=== PATIENT | male | born 1985 | race Caucasian/White ===

== ENCOUNTER 2018-06-09 13:15 | Inpatient (IN) | payer BC ==
[2018-06-09] MEDS ORDERED: Aspirin 81 MG Tab.Chew PO ONE (13:21)
[2018-06-09] MEDS: Sodium Chloride 0.9% 10 ML Syringe FLUSH PRN ×2 (13:32→13:41)
--- NOTE | 2018-06-09 14:16 | EDM.PDOC ---
ED HPI GENERAL MEDICAL PROBLEM - General Chief Complaint: Chest Pain Stated Complaint: ABNORMAL EKG READING SENT BY DR ROCA Time Seen by Provider: 06/09/18 13:24 Source of Information: Reports: Patient History Limitations: Reports: No Limitations - History of Present Illness INITIAL COMMENTS - FREE TEXT/NARRATIVE: 33 y/o previously healthy male presents from clinic for abnormal EKG. States he' s been feeling short of breath for about a week. SOB is worse with exertion. He' s also had mild pain in his chest which he states is not really pain but more of a discomfort. No fever. Doesn't feel ill. No provoking factor. No lower extremity pain or swelling. No hx similar symptoms previously. Was seen at clinic by Dr. Miranda who noted ST elevations on EKG and poor R wave progression so sent the patient here for further care. Treatments ASSURANCE SENIOR MANAGER INSURANCE: Reports: Other (see below) Other Treatments ASSURANCE SENIOR MANAGER INSURANCE: EKG Chest Pain Score (Numeric/FACES): 6 - Related Data Allergies Allergy/AdvReac Type Severity Reaction Status Date / Time No Known Allergies Allergy Verified 06/09/18 13:23 Home Meds: Home Meds . [No Known Home Meds] 06/09/18 [History] Past Medical History Genitourinary History: Reports: Other (See Below) Other Genitourinary History: kidney infection Social & Family History - Tobacco Use Smoking Status *Q: Never Smoker - Caffeine Use Caffeine Use: Reports: Coffee, Energy Drinks - Alcohol Use Days Per Week of Alcohol Use: 2 Number of Drinks Per Day: 8 Total Drinks Per Week: 16 - Recreational Drug Use Recreational Drug Use: No ED ROS GENERAL - Review of Systems Review Of Systems: See Below Constitutional: Denies: Fever HEENT: Reports: No Symptoms Respiratory: Reports: Shortness of Breath Cardiovascular: Reports: Chest Pain Endocrine: Reports: No Symptoms GI/Abdominal: Denies: Abdominal Pain : Reports: No Symptoms Musculoskeletal: Reports: No Symptoms Skin: Reports: No Symptoms Neurological: Reports: No Symptoms Psychiatric: Reports: No Symptoms ED EXAM, GENERAL - Physical Exam Exam: See Below Exam Limited By: No Limitations General Appearance: Alert, WD/WN, No Apparent Distress Eye Exam: Bilateral Eye: Normal Inspection Ears: Normal External Exam Nose: Normal Inspection Throat/Mouth: Normal Inspection, Normal Oropharynx, Normal Voice, No Airway Compromise Head: Atraumatic, Normocephalic Neck: Normal Inspection Respiratory/Chest: No Respiratory Distress, Other (very diminished on the R ) Cardiovascular: Normal Peripheral Pulses, No Edema, Tachycardia GI/Abdominal: Soft, Non-Tender, No Distention. No: Rebound Back Exam: Normal Inspection Extremities: Normal Inspection, Non-Tender, No Pedal Edema Neurological: Alert, Oriented, Normal Cognition, No Motor/Sensory Deficits Psychiatric: Normal Affect, Normal Mood Skin Exam: Warm, Dry, Intact, Normal Color, No Rash Course - Vital Signs Last Recorded V/S: Last Vital Signs Temp 37.6 C 06/09/18 15:16 Pulse 108 H 06/09/18 15:16 Resp 18 06/09/18 15:16 BP 182/116 H 06/09/18 15:16 Pulse Ox 96 06/09/18 15:16 - Orders/Labs/Meds Orders: Active Orders 24 hr Category Date Time Status EKG 12 Lead [EKG Documentation Completion] [RC] STAT Care 06/09/18 13:21 Active Peripheral IV Care [RC] . DIRECTED Care 06/09/18 13:21 Active Peripheral IV Care [RC] . DIRECTED Care 06/09/18 13:21 Active Chest 1V Frontal [CR] Stat Exams 06/09/18 13:21 Taken Sodium Chloride 0.9% [Saline Flush] Med 06/09/18 13:21 Active 10 ml FLUSH ASDIRECTED PRN Peripheral IV Insertion Adult [OM.PC] Routine Oth 06/09/18 13:21 Ordered Medication Orders Sodium Chloride (Saline Flush) 10 ml FLUSH ASDIRECTED PRN PRN Reason: Keep Vein Open Last Admin: 06/09/18 13:41 Dose: 10 ml Admin: 06/09/18 13:32 Dose: 10 ml Labs: Laboratory Tests 06/09/18 06/09/18 Range/Units 13:39 13:39 WBC 10.98 H (4.23-9.07) K/mm3 RBC 5.91 (4.63-6.08) M/mm3 Hgb 17.4 (13.7-17.5) gm/L Hct 51.7 H (40.1-51.0) % MCV 87.5 (79.0-92.2) fl MCH 29.4 (25.7-32.2) pg MCHC 33.7 (32.2-35.5) g/dl RDW Std Deviation 44.1 H (35.1-43.9) fL Plt Count 338 H (163-337) K/mm3 MPV 10.2 (9.4-12.3) fl Neut % (Auto) 59.1 (34.0-67.9) % Lymph % (Auto) 23.5 (21.8-53.1) % [place] % (Auto) 13.8 H (5.3-12.2) % Eos % (Auto) 2.5 (0.8-7.0) Baso % (Auto) 0.9 (0.1-1.2) % Neut # (Auto) 6.49 H (1.78-5.38) K/mm3 Lymph # (Auto) 2.58 (1.32-3.57) K/mm3 [place] # (Auto) 1.52 H (0.30-0.82) K/mm3 Eos # (Auto) 0.27 (0.04-0.54) K/mm3 Baso # (Auto) 0.10 H (0.01-0.08) K/mm3 Manual Slide Review Normal smear Sodium 138 (136-145) mEq/L Potassium 3.6 (3.5-5.1) mEq/L Chloride 101 (98-107) mEq/L Carbon Dioxide 28 (21-32) mEq/L Anion Gap 12.6 (5-15) BUN 12 (7-18) mg/dL Creatinine 1.2 (0.7-1.3) mg/dL Est Cr Clr Drug Dosing 85.50 mL/min Estimated GFR (MDRD) > 60 (>60) mL/min BUN/Creatinine Ratio 10.0 L (14-18) Glucose 83 (74-106) mg/dL Calcium 9.7 (8.5-10.1) mg/dL Magnesium 2.2 (1.8-2.4) mg/dl Total Bilirubin 0.8 (0.2-1.0) mg/dL AST 39 H (15-37) U/L ALT 52 (16-63) U/L Alkaline Phosphatase 98 (46-116) U/L Troponin I < 0.017 (0.00-0.056) ng/mL Total Protein 8.6 H (6.4-8.2) g/dl Albumin 4.6 (3.4-5.0) g/dl Globulin 4.0 gm/dL Albumin/Globulin Ratio 1.2 (1-2) Meds: Medications Generic Name Dose Route Start Last Admin Trade Name Guanako PRN Reason Stop Dose Admin Sodium Chloride 10 ml 06/09/18 13:21 06/09/18 13:41 Saline Flush FLUSH 10 ml ASDIRECTED PRN Administration Keep Vein Open Discontinued Medications Generic Name Dose Route Start Last Admin Trade Name Guanako PRN Reason Stop Dose Admin Aspirin 324 mg 06/09/18 13:21 06/09/18 13:32 Aspirin PO 06/09/18 13:22 324 mg ONETIME ONE Administration Ketamine HCl Confirm 06/09/18 15:27 Ketalar Administered 06/09/18 15:28 Dose 500 mg .ROUTE .STK-MED ONE Lidocaine HCl Confirm 06/09/18 14:41 Xylocaine 1% Administered 06/09/18 14:42 Dose 10 ml .ROUTE .STK-MED ONE Midazolam HCl Confirm 06/09/18 15:27 Versed 1 Mg/Ml Administered 06/09/18 15:28 Dose 2 mg .ROUTE .STK-MED ONE Propofol Confirm 06/09/18 15:27 Diprivan 20 Ml Administered 06/09/18 15:28 Dose 200 mg .ROUTE .STK-MED ONE - Re-Assessments/Exams Free Text/Narrative Re-Assessment/Exam: 06/09/18 14:29 EKG shows NSR wtih possible R atrial enlargement and borderline R axis deviation. Based on EKG from clinic which showed ST elevation approx 1-2 mm V2/ V3 and inferior T wave flattening I did order ASA 324mg. PE was also initially on the differential. However, CXR showed a very large R pneumothorax. Patient will need a chest tube. Labs unremarkable. 06/09/18 16:[address] Grace, surgeon content director, who placed a chest tube with procedural sedation by anesthesia. He will need to be admitted for monitoring. Departure - Departure Time of Disposition: 16:18 Disposition: Admitted As Inpatient 67 Clinical Impression: Spontaneous pneumothorax - Discharge Information Referrals: PCP,None [Primary Care Provider] - Forms: ED Department Discharge - My Orders Last 24 Hours: My Active Orders 06/09/18 13:21 EKG 12 Lead [EKG Documentation Completion] [RC] STAT Peripheral IV Care [RC] . DIRECTED Peripheral IV Care [RC] . DIRECTED Chest 1V Frontal [CR] Stat Sodium Chloride 0.9% [Saline Flush] 10 ml FLUSH ASDIRECTED PRN Peripheral IV Insertion Adult [OM.PC] Routine - Assessment/Plan Last 24 Hours: My Active Orders 06/09/18 13:21 EKG 12 Lead [EKG Documentation Completion] [RC] STAT Peripheral IV Care [RC] . DIRECTED Peripheral IV Care [RC] . DIRECTED Chest 1V Frontal [CR] Stat Sodium Chloride 0.9% [Saline Flush] 10 ml FLUSH ASDIRECTED PRN Peripheral IV Insertion Adult [OM.PC] Routine
[2018-06-09] MEDS ORDERED: Lidocaine 1% 10 ML MDV ONE (14:41)
--- NOTE | 2018-06-09 15:16 | PCM.PREANE ---
Preanesthetic Assessment - Anesthesia/Transfusion/Family Hx Anesthesia History: Prior Anesthesia Without Reaction Family History of Anesthesia Reaction: No Transfusion History: No Prior Transfusion(s) - Review of Systems General: Fatigue, Malaise Pulmonary: Shortness of Breath, Pleuritic Chest Pain, Cough Cardiovascular: No Symptoms Gastrointestinal: No Symptoms Neurological: No Symptoms Other: Reports: None - Physical Assessment NPO Status Date: 06/09/18 NPO Status Time: 08:00 Pulse: 108 O2 Sat by Pulse Oximetry: 96 Respiratory Rate: 18 Blood Pressure: 182/116 Temperature: 37.6 C Vital Signs: Last Vital Signs Temp 36.7 C 06/09/18 13:23 Pulse 113 H 06/09/18 13:23 Resp 20 06/09/18 13:23 BP 177/135 H 06/09/18 13:23 Pulse Ox 95 06/09/18 13:23 Height: 1.73 m Weight: 75.75 kg ASA Class: 2E Mental Status: Alert & Oriented x3 Airway Class: Mallampati = 1 Dentition: Reports: Normal Dentition Thyro-Mental Finger Breadths: 3 Mouth Opening Finger Breadths: 3 ROM/Head Extension: Full Lungs: Clear to Auscultation, Decreased Breath Sounds (right) Cardiovascular: Regular Rhythm, Tachycardia - Lab Values: Laboratory Last Values WBC 10.98 K/mm3 (4.23-9.07) H 06/09/18 13:39 RBC 5.91 M/mm3 (4.63-6.08) 06/09/18 13:39 Hgb 17.4 gm/L (13.7-17.5) 06/09/18 13:39 Hct 51.7 % (40.1-51.0) H 06/09/18 13:39 MCV 87.5 fl (79.0-92.2) 06/09/18 13:39 MCH 29.4 pg (25.7-32.2) 06/09/18 13:39 MCHC 33.7 g/dl (32.2-35.5) 06/09/18 13:39 RDW Std Deviation 44.1 fL (35.1-43.9) H 06/09/18 13:39 Plt Count 338 K/mm3 (163-337) H 06/09/18 13:39 MPV 10.2 fl (9.4-12.3) 06/09/18 13:39 Neut % (Auto) 59.1 % (34.0-67.9) 06/09/18 13:39 Lymph % (Auto) 23.5 % (21.8-53.1) 06/09/18 13:39 [place] % (Auto) 13.8 % (5.3-12.2) H 06/09/18 13:39 Eos % (Auto) 2.5 (0.8-7.0) 06/09/18 13:39 Baso % (Auto) 0.9 % (0.1-1.2) 06/09/18 13:39 Neut # (Auto) 6.49 K/mm3 (1.78-5.38) H 06/09/18 13:39 Lymph # (Auto) 2.58 K/mm3 (1.32-3.57) 06/09/18 13:39 [place] # (Auto) 1.52 K/mm3 (0.30-0.82) H 06/09/18 13:39 Eos # (Auto) 0.27 K/mm3 (0.04-0.54) 06/09/18 13:39 Baso # (Auto) 0.10 K/mm3 (0.01-0.08) H 06/09/18 13:39 Manual Slide Review Normal smear 06/09/18 13:39 Sodium 138 mEq/L (136-145) 06/09/18 13:39 Potassium 3.6 mEq/L (3.5-5.1) 06/09/18 13:39 Chloride 101 mEq/L (98-107) 06/09/18 13:39 Carbon Dioxide 28 mEq/L (21-32) 06/09/18 13:39 Anion Gap 12.6 (5-15) 06/09/18 13:39 BUN 12 mg/dL (7-18) 06/09/18 13:39 Creatinine 1.2 mg/dL (0.7-1.3) 06/09/18 13:39 Est Cr Clr Drug Dosing 85.50 mL/min 06/09/18 13:39 Estimated GFR (MDRD) > 60 mL/min (>60) 06/09/18 13:39 BUN/Creatinine Ratio 10.0 (14-18) L 06/09/18 13:39 Glucose 83 mg/dL (74-106) 06/09/18 13:39 Calcium 9.7 mg/dL (8.5-10.1) 06/09/18 13:39 Magnesium 2.2 mg/dl (1.8-2.4) 06/09/18 13:39 Total Bilirubin 0.8 mg/dL (0.2-1.0) 06/09/18 13:39 AST 39 U/L (15-37) H 06/09/18 13:39 ALT 52 U/L (16-63) 06/09/18 13:39 Alkaline Phosphatase 98 U/L (46-116) 06/09/18 13:39 Troponin I < 0.017 ng/mL (0.00-0.056) 06/09/18 13:39 Total Protein 8.6 g/dl (6.4-8.2) H 06/09/18 13:39 Albumin 4.6 g/dl (3.4-5.0) 06/09/18 13:39 Globulin 4.0 gm/dL 06/09/18 13:39 Albumin/Globulin Ratio 1.2 (1-2) 06/09/18 13:39 - Allergies Allergies/Adverse Reactions: Allergies Allergy/AdvReac Type Severity Reaction Status Date / Time No Known Allergies Allergy Verified 06/09/18 13:23 - Blood Blood Available: No Product(s) Available: None - Anesthesia Plan Pre-Op Medication Ordered: None - Acknowledgements Anesthesia Type Planned: MAC Pt an Appropriate Candidate for the Planned Anesthesia: Yes Alternatives and Risks of Anesthesia Discussed w Pt/Guardian: Yes Pt/Guardian Understands and Agrees with Anesthesia Plan: Yes PreAnesthesia Questionnaire Genitourinary History: Reports: Other (See Below) Other Genitourinary History: kidney infection - SUBSTANCE USE Smoking Status *Q: Never Smoker Days Per Week of Alcohol Use: 2 Number of Drinks Per Day: 8 Total Drinks Per Week: 16 Recreational Drug Use History: No - HOME MEDS Home Medications: Home Meds . [No Known Home Meds] 06/09/18 [History] - CURRENT (IN HOUSE) MEDS Current Meds: Current Medications Sodium Chloride (Saline Flush) 10 ml FLUSH ASDIRECTED PRN PRN Reason: Keep Vein Open Last Admin: 06/09/18 13:41 Dose: 10 ml Discontinued Medications Aspirin (Aspirin) 324 mg PO ONETIME ONE Stop: 06/09/18 13:22 Last Admin: 06/09/18 13:32 Dose: 324 mg Lidocaine HCl (Xylocaine 1%) Confirm Administered Dose 10 ml .ROUTE .STK-MED ONE Stop: 06/09/18 14:42
[2018-06-09] MEDS ORDERED: Midazolam 1 MG/ML 2 ML SDV ONE (15:27)
[2018-06-09] MEDS ORDERED: Ketamine 500 mg/10 ML MDV ONE (15:27)
[2018-06-09] MEDS ORDERED: Propofol 200 MG/20 ML SDV ONE (15:27)
[2018-06-09] MEDS ORDERED: Lidocaine 1% 10 ML MDV INJECT ONE (16:20)
[2018-06-09] MEDS ORDERED: Lactated Ringers 1,000 ML IV SCH (16:45)
[2018-06-09] MEDS ORDERED: Morphine 2 MG/ML Syringe IVPUSH ONE (16:54)
[2018-06-09] MEDS ORDERED: Morphine 2 MG/ML Syringe IVPUSH PRN (17:19)
[2018-06-09] MEDS ORDERED: ceFAZolin 1 GM Vial IM SCH (18:00)
--- NOTE | 2018-06-09 18:04 | PCM.CONSN ---
- General Info Date of Service: 06/09/18 Subjective Update: 33 year old male with a history of SOB/chest discomfort for at least a week presents to the ED. He was seen at the clinic and found to have an abnormal ECG. Reportedly there was ST elevation and poor R wave progression. The patient had a repeat ECG which was less concerning when compared to the intial 12 lead performed in the clinic. A CXR showed a right sided pneumothorax. general surgery was called and a chest tube was placed. The hospitalist service has been asked to manage his hypertension. There is a history of up to 16 drinks of alcohol reported by the patient. Therefore CIWA protocol will also be requested by the hospitalist service. A ETOH/UDS will be ordered as well. Functional Status: Reports: Pain Controlled - Review of Systems General: Reports: No Symptoms HEENT: Reports: No Symptoms Pulmonary: Reports: No Symptoms Cardiovascular: Reports: Chest Pain Gastrointestinal: Reports: No Symptoms Genitourinary: Reports: No Symptoms Musculoskeletal: Reports: No Symptoms Skin: Reports: No Symptoms Neurological: Reports: No Symptoms Psychiatric: Reports: No Symptoms - Patient Data Vitals - Most Recent: Last Vital Signs Temp 37.6 C 06/09/18 15:16 Pulse 108 H 06/09/18 15:16 Resp 18 06/09/18 15:16 BP 182/116 H 06/09/18 15:16 Pulse Ox 96 06/09/18 15:16 Weight - Most Recent: 75.75 kg Lab Results Last 24 Hours: Laboratory Results - last 24 hr 06/09/18 06/09/18 Range/Units 13:39 13:39 WBC 10.98 H (4.23-9.07) K/mm3 RBC 5.91 (4.63-6.08) M/mm3 Hgb 17.4 (13.7-17.5) gm/L Hct 51.7 H (40.1-51.0) % MCV 87.5 (79.0-92.2) fl MCH 29.4 (25.7-32.2) pg MCHC 33.7 (32.2-35.5) g/dl RDW Std Deviation 44.1 H (35.1-43.9) fL Plt Count 338 H (163-337) K/mm3 MPV 10.2 (9.4-12.3) fl Neut % (Auto) 59.1 (34.0-67.9) % Lymph % (Auto) 23.5 (21.8-53.1) % [place] % (Auto) 13.8 H (5.3-12.2) % Eos % (Auto) 2.5 (0.8-7.0) Baso % (Auto) 0.9 (0.1-1.2) % Neut # (Auto) 6.49 H (1.78-5.38) K/mm3 Lymph # (Auto) 2.58 (1.32-3.57) K/mm3 [place] # (Auto) 1.52 H (0.30-0.82) K/mm3 Eos # (Auto) 0.27 (0.04-0.54) K/mm3 Baso # (Auto) 0.10 H (0.01-0.08) K/mm3 Manual Slide Review Normal smear Sodium 138 (136-145) mEq/L Potassium 3.6 (3.5-5.1) mEq/L Chloride 101 (98-107) mEq/L Carbon Dioxide 28 (21-32) mEq/L Anion Gap 12.6 (5-15) BUN 12 (7-18) mg/dL Creatinine 1.2 (0.7-1.3) mg/dL Est Cr Clr Drug Dosing 85.50 mL/min Estimated GFR (MDRD) > 60 (>60) mL/min BUN/Creatinine Ratio 10.0 L (14-18) Glucose 83 (74-106) mg/dL Calcium 9.7 (8.5-10.1) mg/dL Magnesium 2.2 (1.8-2.4) mg/dl Total Bilirubin 0.8 (0.2-1.0) mg/dL AST 39 H (15-37) U/L ALT 52 (16-63) U/L Alkaline Phosphatase 98 (46-116) U/L Troponin I < 0.017 (0.00-0.056) ng/mL Total Protein 8.6 H (6.4-8.2) g/dl Albumin 4.6 (3.4-5.0) g/dl Globulin 4.0 gm/dL Albumin/Globulin Ratio 1.2 (1-2) Med Orders - Current: Current Medications Cefazolin Sodium (Ancef) 1 gm IM Q8H [facility] Lactated Ringer's (Ringers, Lactated) 1,000 mls @ 50 mls/hr IV ASDIRECTED [facility] Last Admin: 06/09/18 16:35 Dose: 50 mls/hr Potassium Chloride/Dextrose/Sod Cl (D5 1/2 Ns W/ 20 Meq/L Kcl) 1,000 mls @ 100 mls/hr IV ASDIRECTED [facility] Morphine Sulfate (Morphine) 2 mg IVPUSH Q1H PRN PRN Reason: Pain (moderate 4-6) Sodium Chloride (Saline Flush) 10 ml FLUSH ASDIRECTED PRN PRN Reason: Keep Vein Open Last Admin: 06/09/18 13:41 Dose: 10 ml Discontinued Medications Aspirin (Aspirin) 324 mg PO ONETIME ONE Stop: 06/09/18 13:22 Last Admin: 06/09/18 13:32 Dose: 324 mg Ketamine HCl (Ketalar) Confirm Administered Dose 500 mg .ROUTE .STK-MED ONE Stop: 06/09/18 15:28 Lidocaine HCl (Xylocaine 1%) Confirm Administered Dose 10 ml .ROUTE .STK-MED ONE Stop: 06/09/18 14:42 Last Admin: 06/09/18 16:23 Dose: Not Given Lidocaine HCl (Xylocaine 1%) 10 ml INJECT ONETIME ONE Stop: 06/09/18 16:21 Last Admin: 06/09/18 16:23 Dose: 10 ml Midazolam HCl (Versed 1 Mg/Ml) Confirm Administered Dose 2 mg .ROUTE .STK-MED ONE Stop: 06/09/18 15:28 Morphine Sulfate (Morphine) 2 mg IVPUSH ONETIME ONE Stop: 06/09/18 16:55 Last Admin: 06/09/18 17:00 Dose: 2 mg Propofol (Diprivan 20 Ml) Confirm Administered Dose 200 mg .ROUTE .STK-MED ONE Stop: 06/09/18 15:28 - Exam General: Alert, Oriented, Cooperative, No Acute Distress HEENT: Pupils Equal, Pupils Reactive, EOMI Neck: Trachea Midline, No JVD Lungs: Normal Respiratory Effort Cardiovascular: Regular Rate, Tachycardia GI/Abdominal Exam: Normal Bowel Sounds, Soft, Non-Tender, No Organomegaly, No Distention (Male) Exam: Deferred Back Exam: Normal Inspection Extremities: Normal Inspection, Non-Tender, Normal Capillary Refill Skin: Warm Neurological: No New Focal Deficit, Normal Speech Psy/Mental Status: Alert, Normal Affect, Normal Mood Consult PN Assessment/Plan POD#: 0 (1) Elevated blood-pressure reading without diagnosis of hypertension SNOMED Code(s): 668388825 Code(s): R03.0 - ELEVATED BLOOD-PRESSURE READING, W/O DIAGNOSIS OF HTN Current Visit: Yes (2) Spontaneous pneumothorax SNOMED Code(s): 23750396 Code(s): J93.83 - OTHER PNEUMOTHORAX Current Visit: No Problem List Initiated/Reviewed/Updated: Yes Plan: Impression: Spontaneous PTX, right sided Elevated BP without history of hypertension History of ethanol, 16 drinks per week; query withdrawal Plan: ZAHRA UDA Alpha aimee Beta aimee Vasodilator CIWA protocol as needed. DVT/GI prophylaxis
[2018-06-09] MEDS ORDERED: hydrALAZINE 20 MG/ML SDV IVPUSH PRN ×2 (18:08→21:13)
[2018-06-09] MEDS ORDERED: Morphine 4 MG/ML Syringe IVPUSH ONE (18:20)
[2018-06-09] MEDS: D5 1/2 NS w/ 20 mEq/L KCl 1,000 ML IV SCH (18:34)
[2018-06-09] MEDS ORDERED: cloNIDine 0.1 MG Tab PO ONE (21:00)
[2018-06-09] MEDS ORDERED: Ketorolac 60 MG/2 ML SDV IM ONE (21:09)
[2018-06-10] MEDS: Ketorolac 30 MG/ML SDV IVPUSH SCH ×5 (02:58→20:43)
[2018-06-10] MEDS: HYDROmorphone 1 MG/ML Syringe IVPUSH PRN ×3 (03:57→18:43)
[2018-06-10] MEDS: D5 1/2 NS w/ 20 mEq/L KCl 1,000 ML IV SCH ×2 (06:19→16:50)
[2018-06-10] MEDS: Acetaminophen/HYDROcodone 325-5 MG Tab PO PRN ×2 (07:58→16:50)
--- NOTE | 2018-06-10 09:49 | PCM.CONSN ---
- General Info Date of Service: 06/10/18 Functional Status: Reports: Tolerating Diet, Ambulating - Review of Systems General: Reports: No Symptoms HEENT: Reports: No Symptoms Pulmonary: Reports: No Symptoms Cardiovascular: Reports: Chest Pain Gastrointestinal: Reports: No Symptoms Genitourinary: Reports: No Symptoms Musculoskeletal: Reports: No Symptoms Skin: Reports: No Symptoms Neurological: Reports: No Symptoms Psychiatric: Reports: No Symptoms - Patient Data Vitals - Most Recent: Last Vital Signs Temp 36.9 C 06/10/18 07:56 Pulse 86 06/10/18 07:56 Resp 16 06/10/18 07:56 BP 165/94 H 06/10/18 07:56 Pulse Ox 94 L 06/10/18 07:56 Weight - Most Recent: 74.253 kg I&O - Last 24 Hours: Intake & Output 06/09/18 06/10/18 06/10/18 22:59 06:59 14:59 Intake Total 25 1300 Balance 25 1300 Lab Results Last 24 Hours: Laboratory Results - last 24 hr 06/09/18 06/09/18 06/09/18 Range/Units 13:39 13:39 13:39 WBC 10.98 H (4.23-9.07) K/mm3 RBC 5.91 (4.63-6.08) M/mm3 Hgb 17.4 (13.7-17.5) gm/L Hct 51.7 H (40.1-51.0) % MCV 87.5 (79.0-92.2) fl MCH 29.4 (25.7-32.2) pg MCHC 33.7 (32.2-35.5) g/dl RDW Std Deviation 44.1 H (35.1-43.9) fL Plt Count 338 H (163-337) K/mm3 MPV 10.2 (9.4-12.3) fl Neut % (Auto) 59.1 (34.0-67.9) % Lymph % (Auto) 23.5 (21.8-53.1) % Cannon % (Auto) 13.8 H (5.3-12.2) % Eos % (Auto) 2.5 (0.8-7.0) Baso % (Auto) 0.9 (0.1-1.2) % Neut # (Auto) 6.49 H (1.78-5.38) K/mm3 Lymph # (Auto) 2.58 (1.32-3.57) K/mm3 Cannon # (Auto) 1.52 H (0.30-0.82) K/mm3 Eos # (Auto) 0.27 (0.04-0.54) K/mm3 Baso # (Auto) 0.10 H (0.01-0.08) K/mm3 Manual Slide Review Normal smear Sodium 138 (136-145) mEq/L Potassium 3.6 (3.5-5.1) mEq/L Chloride 101 (98-107) mEq/L Carbon Dioxide 28 (21-32) mEq/L Anion Gap 12.6 (5-15) BUN 12 (7-18) mg/dL Creatinine 1.2 (0.7-1.3) mg/dL Est Cr Clr Drug Dosing 85.50 mL/min Estimated GFR (MDRD) > 60 (>60) mL/min BUN/Creatinine Ratio 10.0 L (14-18) Glucose 83 (74-106) mg/dL Calcium 9.7 (8.5-10.1) mg/dL Magnesium 2.2 (1.8-2.4) mg/dl Total Bilirubin 0.8 (0.2-1.0) mg/dL AST 39 H (15-37) U/L ALT 52 (16-63) U/L Alkaline Phosphatase 98 (46-116) U/L Troponin I < 0.017 (0.00-0.056) ng/mL Total Protein 8.6 H (6.4-8.2) g/dl Albumin 4.6 (3.4-5.0) g/dl Globulin 4.0 gm/dL Albumin/Globulin Ratio 1.2 (1-2) Urine Opiates Screen (NEGATIVE) Ur Buprenorphine Scrn (NEGATIVE) Ur Oxycodone Screen (NEGATIVE) Urine Methadone Screen (NEGATIVE) Ur Propoxyphene Screen (NEGATIVE) Ur Barbiturates Screen (NEGATIVE) Ur Tricyclics Screen (NEGATIVE) Ur Phencyclidine Scrn (NEGATIVE) Ur Amphetamine Screen (NEGATIVE) U Methamphetamines Scrn (NEGATIVE) U Benzodiazepines Scrn (NEGATIVE) U Cocaine Metab Screen (NEGATIVE) U Marijuana (THC) Screen (NEGATIVE) Ethyl Alcohol 0.00 (0.00) gm% 06/09/18 Range/Units 18:48 WBC (4.23-9.07) K/mm3 RBC (4.63-6.08) M/mm3 Hgb (13.7-17.5) gm/L Hct (40.1-51.0) % MCV (79.0-92.2) fl MCH (25.7-32.2) pg MCHC (32.2-35.5) g/dl RDW Std Deviation (35.1-43.9) fL Plt Count (163-337) K/mm3 MPV (9.4-12.3) fl Neut % (Auto) (34.0-67.9) % Lymph % (Auto) (21.8-53.1) % Cannon % (Auto) (5.3-12.2) % Eos % (Auto) (0.8-7.0) Baso % (Auto) (0.1-1.2) % Neut # (Auto) (1.78-5.38) K/mm3 Lymph # (Auto) (1.32-3.57) K/mm3 Cannon # (Auto) (0.30-0.82) K/mm3 Eos # (Auto) (0.04-0.54) K/mm3 Baso # (Auto) (0.01-0.08) K/mm3 Manual Slide Review Sodium (136-145) mEq/L Potassium (3.5-5.1) mEq/L Chloride (98-107) mEq/L Carbon Dioxide (21-32) mEq/L Anion Gap (5-15) BUN (7-18) mg/dL Creatinine (0.7-1.3) mg/dL Est Cr Clr Drug Dosing mL/min Estimated GFR (MDRD) (>60) mL/min BUN/Creatinine Ratio (14-18) Glucose (74-106) mg/dL Calcium (8.5-10.1) mg/dL Magnesium (1.8-2.4) mg/dl Total Bilirubin (0.2-1.0) mg/dL AST (15-37) U/L ALT (16-63) U/L Alkaline Phosphatase (46-116) U/L Troponin I (0.00-0.056) ng/mL Total Protein (6.4-8.2) g/dl Albumin (3.4-5.0) g/dl Globulin gm/dL Albumin/Globulin Ratio (1-2) Urine Opiates Screen Negative (NEGATIVE) Ur Buprenorphine Scrn Negative (NEGATIVE) Ur Oxycodone Screen Negative (NEGATIVE) Urine Methadone Screen Negative (NEGATIVE) Ur Propoxyphene Screen Negative (NEGATIVE) Ur Barbiturates Screen Negative (NEGATIVE) Ur Tricyclics Screen Negative (NEGATIVE) Ur Phencyclidine Scrn Negative (NEGATIVE) Ur Amphetamine Screen Negative (NEGATIVE) U Methamphetamines Scrn Negative (NEGATIVE) U Benzodiazepines Scrn Negative (NEGATIVE) U Cocaine Metab Screen Negative (NEGATIVE) U Marijuana (THC) Screen Negative (NEGATIVE) Ethyl Alcohol (0.00) gm% Med Orders - Current: Current Medications Hydrocodone Bitart/Acetaminophen ([place] 325-5 Mg) 1 tab PO Q6H PRN PRN Reason: Pain Last Admin: 06/10/18 07:58 Dose: 1 tab Hydralazine HCl (Apresoline) 20 mg IVPUSH Q4H PRN PRN Reason: Hypertension Hydromorphone HCl (Dilaudid) 1 mg IVPUSH Q2H PRN PRN Reason: Pain Last Admin: 06/10/18 03:57 Dose: 1 mg Potassium Chloride/Dextrose/Sod Cl (D5 1/2 Ns W/ 20 Meq/L Kcl) 1,000 mls @ 100 mls/hr IV ASDIRECTED [facility] Last Admin: 06/10/18 06:19 Dose: 100 mls/hr Cefazolin Sodium/Dextrose (Ancef) 50 mls @ 100 mls/hr IV Q8H [facility] Last Admin: 06/10/18 02:59 Dose: 100 mls/hr Ketorolac Tromethamine (Toradol) 30 mg IVPUSH Q6H [facility] Stop: 06/11/18 21:01 Last Admin: 06/10/18 09:20 Dose: Not Given Metoprolol Tartrate (Lopressor) 5 mg IVPUSH Q4H PRN PRN Reason: Hypertension Morphine Sulfate (Morphine) 2 mg IVPUSH Q1H PRN PRN Reason: Pain (moderate 4-6) Last Admin: 06/09/18 18:30 Dose: 2 mg Sodium Chloride (Saline Flush) 10 ml FLUSH ASDIRECTED PRN PRN Reason: Keep Vein Open Last Admin: 06/09/18 13:41 Dose: 10 ml Temazepam (Restoril) 15 mg PO BEDTIME PRN PRN Reason: Insomnia Terazosin HCl (Hytrin) 2 mg PO BID [facility] Last Admin: 06/10/18 08:26 Dose: 2 mg Discontinued Medications Aspirin (Aspirin) 324 mg PO ONETIME ONE Stop: 06/09/18 13:22 Last Admin: 06/09/18 13:32 Dose: 324 mg Clonidine HCl (Catapres) 0.2 mg PO ONETIME ONE Stop: 06/09/18 21:01 Last Admin: 06/09/18 20:37 Dose: 0.2 mg Hydralazine HCl (Apresoline) 20 mg IVPUSH Q6H PRN PRN Reason: Hypertension Last Admin: 06/09/18 18:32 Dose: 20 mg Lactated Ringer's (Ringers, Lactated) 1,000 mls @ 50 mls/hr IV ASDIRECTED [facility] Last Admin: 06/09/18 16:35 Dose: 50 mls/hr Ketamine HCl (Ketalar) Confirm Administered Dose 500 mg .ROUTE .STK-MED ONE Stop: 06/09/18 15:28 Ketorolac Tromethamine (Toradol) 60 mg IM ONETIME ONE Stop: 06/09/18 21:10 Last Admin: 06/09/18 21:22 Dose: 60 mg Lidocaine HCl (Xylocaine 1%) Confirm Administered Dose 10 ml .ROUTE .STK-MED ONE Stop: 06/09/18 14:42 Last Admin: 06/09/18 16:23 Dose: Not Given Lidocaine HCl (Xylocaine 1%) 10 ml INJECT ONETIME ONE Stop: 06/09/18 16:21 Last Admin: 06/09/18 16:23 Dose: 10 ml Midazolam HCl (Versed 1 Mg/Ml) Confirm Administered Dose 2 mg .ROUTE .STK-MED ONE Stop: 06/09/18 15:28 Morphine Sulfate (Morphine) 2 mg IVPUSH ONETIME ONE Stop: 06/09/18 16:55 Last Admin: 06/09/18 17:00 Dose: 2 mg Morphine Sulfate (Morphine) 4 mg IVPUSH ONETIME ONE Stop: 06/09/18 18:21 Last Admin: 06/09/18 20:19 Dose: 4 mg Propofol (Diprivan 20 Ml) Confirm Administered Dose 200 mg .ROUTE .STK-MED ONE Stop: 06/09/18 15:28 - Exam Quality Assessment: DVT Prophylaxis General: Alert, Oriented, Cooperative, No Acute Distress HEENT: Pupils Equal, Pupils Reactive, EOMI Neck: Trachea Midline, No JVD Lungs: Normal Respiratory Effort, Decreased Breath Sounds Cardiovascular: Regular Rate, Tachycardia GI/Abdominal Exam: Normal Bowel Sounds, Soft, Non-Tender, No Organomegaly, No Distention (Male) Exam: Deferred Back Exam: Normal Inspection Extremities: Normal Inspection, Non-Tender, Normal Capillary Refill Skin: Warm Neurological: No New Focal Deficit, Normal Speech Psy/Mental Status: Alert, Normal Affect, Normal Mood Consult PN Assessment/Plan POD#: 1 (1) Elevated blood-pressure reading without diagnosis of hypertension SNOMED Code(s): 316087441 Code(s): R03.0 - ELEVATED BLOOD-PRESSURE READING, W/O DIAGNOSIS OF HTN Current Visit: Yes (2) Spontaneous pneumothorax SNOMED Code(s): 84096807 Code(s): J93.83 - OTHER PNEUMOTHORAX Current Visit: No Problem List Initiated/Reviewed/Updated: Yes My Orders Last 24 Hours: My Active Orders 06/09/18 18:11 Metoprolol Tartrate [Lopressor] 5 mg IVPUSH Q4H PRN 06/09/18 18:51 CIWAA Assessment [RC] Q4HR 06/09/18 19:58 Temazepam [Restoril] 15 mg PO BEDTIME PRN 06/09/18 21:00 Terazosin [Hytrin] 2 mg PO BID 06/09/18 21:11 Acetaminophen/HYDROcodone [[place] 325-5 MG] 1 tab PO Q6H PRN 06/09/18 21:13 hydrALAZINE [Apresoline] 20 mg IVPUSH Q4H PRN 06/10/18 03:00 Ketorolac [Toradol] 30 mg IVPUSH Q6H Plan: Impression: POD 1, s/p chest tube Spontaneous PTX, right sided Elevated BP without history of hypertension History of ethanol, 16 drinks per week; query withdrawal Plan: ZAHRA UDA Alpha aimee Beta aimee Vasodilator CIWA protocol as needed. DVT/GI prophylaxis
[2018-06-10] MEDS: amLODIPine 10 MG Tab PO SCH (10:31)
--- NOTE | 2018-06-10 17:18 | CR ---
Chest: Frontal view of the chest was obtained. Comparison: No previous study. Large right sided pneumothorax is seen. Left lung is clear. Heart size and mediastinum are normal. Bony structures are unremarkable. Impression: 1. Large right-sided pneumothorax. Diagnostic code #5
--- NOTE | 2018-06-10 17:20 | CR ---
Chest: Portable view of the chest was obtained. Comparison: Prior chest x-ray performed earlier on the same date (12:43 PM). Previous large right-sided pneumothorax has been evacuated with right chest tube in place. Subcutaneous air noted from chest tube placement within the right chest wall. Lungs are clear without acute parenchymal change. Heart size and mediastinum are normal. Bony structures are unremarkable. Impression: 1. Subcutaneous air within the right chest wall with right sided chest tube. 2. Previous large right-sided pneumothorax has been evacuated. Diagnostic code #2
[2018-06-11] MEDS: HYDROmorphone 1 MG/ML Syringe IVPUSH PRN ×5 (00:05→22:13)
[2018-06-11] MEDS: Ketorolac 30 MG/ML SDV IVPUSH SCH ×4 (03:01→21:06)
[2018-06-11] MEDS: D5 1/2 NS w/ 20 mEq/L KCl 1,000 ML IV SCH ×3 (03:02→23:46)
--- NOTE | 2018-06-11 07:25 | PCM.CONSN ---
- General Info Date of Service: 06/11/18 Admission Dx/Problem (Free Text): Pneumothorax Subjective Update: In to see Robinson. He is sitting in bed with chest tube present in right side. He is in good spirits. He reports he has had high blood pressure in the past but has not been to see primary care in some time. He is unsure what his baseline is. He reports occasional pain which is exacerbate by movement. He has been receiving pain medication with generally good response. Blood pressure has improved. He has been mildly tachycardic in the low 100's although this increases during pain. Discussed role pain plays on BP and HR. Discussed likely plan after discharge. He has been receiving daily Norvasc 10mg and BID Hytrin. PRN metoprolol and hydralazine ordered. He has been standing but not ambulating. Reports difficulty sleeping. CIWAs have been 0 QHR. Will look at discontinuing tomorrow. He has been utilizing his IS. Functional Status: Reports: Pain Controlled, Tolerating Diet, Urinating, Incentive Spirometry. Denies: Ambulating (standing ), New Symptoms - Review of Systems General: Denies: Fever, Weakness, Fatigue, Malaise HEENT: Reports: No Symptoms. Denies: Eye Pain, Headaches, Sinus Congestion, Sore Throat, Visual Changes Pulmonary: Reports: No Symptoms. Denies: Shortness of Breath, Cough, Sputum, Wheezing Cardiovascular: Reports: Chest Pain. Denies: Palpitations, Dyspnea on Exertion , Orthopnea, Edema Gastrointestinal: Reports: No Symptoms. Denies: Abdominal Pain, Constipation, Decreased Appetite, Diarrhea, Nausea, Vomiting Genitourinary: Reports: No Symptoms Musculoskeletal: Reports: No Symptoms Skin: Reports: No Symptoms Neurological: Reports: Difficulty Walking (2/2 pain ). Denies: Confusion, Dizziness, Headache, Pre-Existing Deficit, Weakness Psychiatric: Reports: No Symptoms. Denies: Confusion - Patient Data Vitals - Most Recent: Last Vital Signs Temp 98.2 F 06/11/18 03:17 Pulse 113 H 06/11/18 03:17 Resp 16 06/11/18 03:17 BP 141/96 H 06/11/18 03:17 Pulse Ox 92 L 06/11/18 03:17 Weight - Most Recent: 168 lb I&O - Last 24 Hours: Intake & Output 06/10/18 06/11/18 06/11/18 22:59 06:59 14:59 Intake Total 7950 3470 Output Total 570 8579 Balance 1487 -314 Lab Results Last 24 Hours: Laboratory Results - last 24 hr 06/10/18 06/11/18 Range/Units 10:12 05:55 Sodium 135 L 137 (136-145) mEq/L Potassium 3.7 4.3 (3.5-5.1) mEq/L Chloride 100 104 (98-107) mEq/L Carbon Dioxide 24 26 (21-32) mEq/L Anion Gap 14.7 11.3 (5-15) BUN 12 11 (7-18) mg/dL Creatinine 1.3 1.1 (0.7-1.3) mg/dL Est Cr Clr Drug Dosing 78.92 93.27 mL/min Estimated GFR (MDRD) > 60 > 60 (>60) mL/min BUN/Creatinine Ratio 9.2 L 10.0 L (14-18) Glucose 172 H 119 H (74-106) mg/dL Calcium 8.4 L 8.7 (8.5-10.1) mg/dL Med Orders - Current: Current Medications Hydrocodone Bitart/Acetaminophen ([place] 325-5 Mg) 1 tab PO Q6H PRN PRN Reason: Pain Last Admin: 06/10/18 16:50 Dose: 1 tab Amlodipine Besylate (Norvasc) 10 mg PO DAILY [facility] Last Admin: 06/10/18 10:31 Dose: 10 mg Hydralazine HCl (Apresoline) 20 mg IVPUSH Q4H PRN PRN Reason: Hypertension Hydromorphone HCl (Dilaudid) 1 mg IVPUSH Q2H PRN PRN Reason: Pain Last Admin: 06/11/18 00:05 Dose: 1 mg Potassium Chloride/Dextrose/Sod Cl (D5 1/2 Ns W/ 20 Meq/L Kcl) 1,000 mls @ 100 mls/hr IV ASDIRECTED [facility] Last Admin: 06/11/18 03:02 Dose: 100 mls/hr Cefazolin Sodium/Dextrose (Ancef) 50 mls @ 100 mls/hr IV Q8H [facility] Last Admin: 06/11/18 03:06 Dose: 100 mls/hr Ketorolac Tromethamine (Toradol) 30 mg IVPUSH Q6H [facility] Stop: 06/11/18 21:01 Last Admin: 06/11/18 03:01 Dose: 30 mg Metoprolol Tartrate (Lopressor) 5 mg IVPUSH Q4H PRN PRN Reason: Hypertension Morphine Sulfate (Morphine) 2 mg IVPUSH Q1H PRN PRN Reason: Pain (moderate 4-6) Last Admin: 06/09/18 18:30 Dose: 2 mg Sodium Chloride (Saline Flush) 10 ml FLUSH ASDIRECTED PRN PRN Reason: Keep Vein Open Last Admin: 06/09/18 13:41 Dose: 10 ml Temazepam (Restoril) 15 mg PO BEDTIME PRN PRN Reason: Insomnia Terazosin HCl (Hytrin) 2 mg PO BID [facility] Last Admin: 06/10/18 20:42 Dose: 2 mg Discontinued Medications Aspirin (Aspirin) 324 mg PO ONETIME ONE Stop: 06/09/18 13:22 Last Admin: 06/09/18 13:32 Dose: 324 mg Clonidine HCl (Catapres) 0.2 mg PO ONETIME ONE Stop: 06/09/18 21:01 Last Admin: 06/09/18 20:37 Dose: 0.2 mg Hydralazine HCl (Apresoline) 20 mg IVPUSH Q6H PRN PRN Reason: Hypertension Last Admin: 06/09/18 18:32 Dose: 20 mg Lactated Ringer's (Ringers, Lactated) 1,000 mls @ 50 mls/hr IV ASDIRECTED [facility] Last Admin: 06/09/18 16:35 Dose: 50 mls/hr Cefazolin Sodium/Dextrose (Ancef) 50 mls @ 100 mls/hr IV Q8H [facility] Last Admin: 06/10/18 18:44 Dose: 100 mls/hr Ketamine HCl (Ketalar) Confirm Administered Dose 500 mg .ROUTE .STK-MED ONE Stop: 06/09/18 15:28 Ketorolac Tromethamine (Toradol) 60 mg IM ONETIME ONE Stop: 06/09/18 21:10 Last Admin: 06/09/18 21:22 Dose: 60 mg Lidocaine HCl (Xylocaine 1%) Confirm Administered Dose 10 ml .ROUTE .STK-MED ONE Stop: 06/09/18 14:42 Last Admin: 06/09/18 16:23 Dose: Not Given Lidocaine HCl (Xylocaine 1%) 10 ml INJECT ONETIME ONE Stop: 06/09/18 16:21 Last Admin: 06/09/18 16:23 Dose: 10 ml Midazolam HCl (Versed 1 Mg/Ml) Confirm Administered Dose 2 mg .ROUTE .STK-MED ONE Stop: 06/09/18 15:28 Morphine Sulfate (Morphine) 2 mg IVPUSH ONETIME ONE Stop: 06/09/18 16:55 Last Admin: 06/09/18 17:00 Dose: 2 mg Morphine Sulfate (Morphine) 4 mg IVPUSH ONETIME ONE Stop: 06/09/18 18:21 Last Admin: 06/09/18 20:19 Dose: 4 mg Propofol (Diprivan 20 Ml) Confirm Administered Dose 200 mg .ROUTE .STK-MED ONE Stop: 06/09/18 15:28 - Exam Quality Assessment: DVT Prophylaxis General: Alert, Oriented, Cooperative, No Acute Distress HEENT: Pupils Equal, Pupils Reactive, EOMI, Mucous Membr. Moist/[place] Neck: Supple, Trachea Midline Lungs: Normal Respiratory Effort, Decreased Breath Sounds (on right side ). No : Rhonchi, Wheezing Cardiovascular: Regular Rate, Tachycardia GI/Abdominal Exam: Normal Bowel Sounds, Soft, Non-Tender, No Organomegaly, No Mass (Male) Exam: Deferred Back Exam: Normal Inspection, Full Range of Motion Extremities: Normal Inspection, Normal Range of Motion, Non-Tender, No Pedal Edema, Normal Capillary Refill Peripheral Pulses: 3+: Radial (L), Radial (R), Dorsalis Pedis (L), Dorsalis Pedis (R) Skin: Warm, Dry, Intact Neurological: No New Focal Deficit Psy/Mental Status: Alert, Normal Affect, Normal Mood Consult PN Assessment/Plan POD#: 3 (1) Elevated blood-pressure reading without diagnosis of hypertension SNOMED Code(s): 357975709 Code(s): R03.0 - ELEVATED BLOOD-PRESSURE READING, W/O DIAGNOSIS OF HTN Current Visit: Yes (2) Spontaneous pneumothorax SNOMED Code(s): 05081225 Code(s): J93.83 - OTHER PNEUMOTHORAX Current Visit: No Problem List Initiated/Reviewed/Updated: Yes Plan: I/P: Acute: Spontaneous right sided pneumothorax s/p chest tube PO day 3 -Reportedly had chest pain and irregular EKG in [facility] -Was told to come to ED -Large right sided pneumothorax noted on CXR -GS placed chest tube -Utilize IS -Management per primary team Malignant HTN, improved -BP 182/116 in ED -> improved today -Exacerbated by pain -Patient reports elevated BPs prior but has not seen primary care in some time -Started on 10mg norvasc and 2mg PO Hytrin -PRN Hydralazine -Follow-up with PCP at discharge -Monitor History of ethanol, 16 drinks per week; query withdrawal -Started on CIWA protocol Q4H-->Q8H -2 on admission (worse) -0 for last few days -Will discontinue tomorrow if still 0 -ETOH 0.00 on admission -UDS negative Chronic: None Plan: Consult requested by Dr. Grace, general surgeon Other orders as indicated aboe No home meds Daily labs as ordered DVT prophylaxis: Per primary provider -SCDs Code Status: Full Code; Does not have PCP and will need to establish
[2018-06-11] MEDS ORDERED: ceFAZolin 1 GM in Premix Bag 1 BAG IV SCH (08:00)
[2018-06-11] MEDS: amLODIPine 10 MG Tab PO SCH (08:03)
--- NOTE | 2018-06-11 09:20 | CR ---
Chest: Portable view of the chest was obtained. Comparison: Prior chest x-ray of 06/09/18. Stable appearing right-sided chest tube is seen. Subcutaneous air is noted within the right chest wall which is mildly diminished from prior exam. No pneumothorax is seen. Lungs are clear without acute parenchymal change. Heart size and mediastinum are normal. Bony structures are unremarkable. Impression: 1. Stable right-sided chest tube. Diminished subcutaneous air within the right chest wall. 2. No pneumothorax or acute parenchymal change is seen. Diagnostic code #2
[2018-06-11] MEDS: ceFAZolin 1 GM in Premix Bag 1 BAG IV SCH ×2 (10:30→18:12)
--- NOTE | 2018-06-11 11:27 | PCM.PN ---
- General Info Date of Service: 06/11/18 Functional Status: Reports: Pain Controlled - Review of Systems General: Reports: No Symptoms HEENT: Reports: No Symptoms Pulmonary: Denies: Shortness of Breath, Pleuritic Chest Pain, Sputum, Hemoptysis Cardiovascular: Reports: No Symptoms Gastrointestinal: Reports: No Symptoms Genitourinary: Reports: No Symptoms Musculoskeletal: Denies: Back Pain Skin: Reports: No Symptoms Neurological: Reports: No Symptoms Psychiatric: Reports: No Symptoms - Patient Data Vitals - Most Recent: Last Vital Signs Temp 99.6 F 06/11/18 08:00 Pulse 110 H 06/11/18 07:31 Resp 18 06/11/18 07:31 BP 147/99 H 06/11/18 08:03 Pulse Ox 94 L 06/11/18 07:31 Weight - Most Recent: 168 lb I&O - Last 24 Hours: Intake & Output 06/10/18 06/11/18 06/11/18 22:59 06:59 14:59 Intake Total 2202 1664 Output Total 715 1978 Balance 1487 -314 Lab Results Last 24 Hours: Laboratory Results - last 24 hr 06/11/18 Range/Units 05:55 Sodium 137 (136-145) mEq/L Potassium 4.3 (3.5-5.1) mEq/L Chloride 104 (98-107) mEq/L Carbon Dioxide 26 (21-32) mEq/L Anion Gap 11.3 (5-15) BUN 11 (7-18) mg/dL Creatinine 1.1 (0.7-1.3) mg/dL Est Cr Clr Drug Dosing 93.27 mL/min Estimated GFR (MDRD) > 60 (>60) mL/min BUN/Creatinine Ratio 10.0 L (14-18) Glucose 119 H (74-106) mg/dL Calcium 8.7 (8.5-10.1) mg/dL Med Orders - Current: Current Medications Hydrocodone Bitart/Acetaminophen ([place] 325-5 Mg) 1 tab PO Q6H PRN PRN Reason: Pain Last Admin: 06/10/18 16:50 Dose: 1 tab Amlodipine Besylate (Norvasc) 10 mg PO DAILY [facility] Last Admin: 06/11/18 08:03 Dose: 10 mg Hydralazine HCl (Apresoline) 20 mg IVPUSH Q4H PRN PRN Reason: Hypertension Hydromorphone HCl (Dilaudid) 1 mg IVPUSH Q2H PRN PRN Reason: Pain Last Admin: 06/11/18 00:05 Dose: 1 mg Potassium Chloride/Dextrose/Sod Cl (D5 1/2 Ns W/ 20 Meq/L Kcl) 1,000 mls @ 100 mls/hr IV ASDIRECTED [facility] Last Admin: 06/11/18 03:02 Dose: 100 mls/hr Cefazolin Sodium/Dextrose 1 gm (/ Premix) 50 mls @ 100 mls/hr IV Q8H [facility] Last Admin: 06/11/18 10:30 Dose: 100 mls/hr Ketorolac Tromethamine (Toradol) 30 mg IVPUSH Q6H [facility] Stop: 06/11/18 21:01 Last Admin: 06/11/18 08:03 Dose: 30 mg Metoprolol Tartrate (Lopressor) 5 mg IVPUSH Q4H PRN PRN Reason: Hypertension Morphine Sulfate (Morphine) 2 mg IVPUSH Q1H PRN PRN Reason: Pain (moderate 4-6) Last Admin: 06/09/18 18:30 Dose: 2 mg Sodium Chloride (Saline Flush) 10 ml FLUSH ASDIRECTED PRN PRN Reason: Keep Vein Open Last Admin: 06/09/18 13:41 Dose: 10 ml Temazepam (Restoril) 15 mg PO BEDTIME PRN PRN Reason: Insomnia Terazosin HCl (Hytrin) 2 mg PO BID [facility] Last Admin: 06/11/18 08:03 Dose: 2 mg Discontinued Medications Aspirin (Aspirin) 324 mg PO ONETIME ONE Stop: 06/09/18 13:22 Last Admin: 06/09/18 13:32 Dose: 324 mg Clonidine HCl (Catapres) 0.2 mg PO ONETIME ONE Stop: 06/09/18 21:01 Last Admin: 06/09/18 20:37 Dose: 0.2 mg Hydralazine HCl (Apresoline) 20 mg IVPUSH Q6H PRN PRN Reason: Hypertension Last Admin: 06/09/18 18:32 Dose: 20 mg Lactated Ringer's (Ringers, Lactated) 1,000 mls @ 50 mls/hr IV ASDIRECTED [facility] Last Admin: 06/09/18 16:35 Dose: 50 mls/hr Cefazolin Sodium/Dextrose (Ancef) 50 mls @ 100 mls/hr IV Q8H [facility] Last Admin: 06/10/18 18:44 Dose: 100 mls/hr Cefazolin Sodium/Dextrose (Ancef) 50 mls @ 100 mls/hr IV Q8H [facility] Last Admin: 06/11/18 03:06 Dose: 100 mls/hr Cefazolin Sodium/Dextrose 1 gm (/ Premix) 50 mls @ 100 mls/hr IV Q8H [facility] Last Admin: 06/11/18 08:04 Dose: Not Given Ketamine HCl (Ketalar) Confirm Administered Dose 500 mg .ROUTE .STK-MED ONE Stop: 06/09/18 15:28 Ketorolac Tromethamine (Toradol) 60 mg IM ONETIME ONE Stop: 06/09/18 21:10 Last Admin: 06/09/18 21:22 Dose: 60 mg Lidocaine HCl (Xylocaine 1%) Confirm Administered Dose 10 ml .ROUTE .STK-MED ONE Stop: 06/09/18 14:42 Last Admin: 06/09/18 16:23 Dose: Not Given Lidocaine HCl (Xylocaine 1%) 10 ml INJECT ONETIME ONE Stop: 06/09/18 16:21 Last Admin: 06/09/18 16:23 Dose: 10 ml Midazolam HCl (Versed 1 Mg/Ml) Confirm Administered Dose 2 mg .ROUTE .STK-MED ONE Stop: 06/09/18 15:28 Morphine Sulfate (Morphine) 2 mg IVPUSH ONETIME ONE Stop: 06/09/18 16:55 Last Admin: 06/09/18 17:00 Dose: 2 mg Morphine Sulfate (Morphine) 4 mg IVPUSH ONETIME ONE Stop: 06/09/18 18:21 Last Admin: 06/09/18 20:19 Dose: 4 mg Propofol (Diprivan 20 Ml) Confirm Administered Dose 200 mg .ROUTE .STK-MED ONE Stop: 06/09/18 15:28 - Exam General: Alert, Oriented, Cooperative, No Acute Distress HEENT: Pupils Equal Neck: Supple Lungs: Clear to Auscultation Cardiovascular: Regular Rate, Tachycardia GI/Abdominal Exam: Normal Bowel Sounds (Male) Exam: No Hernia Back Exam: Normal Inspection Extremities: Normal Inspection Skin: Warm Wound/Incisions: Dressing Dry and Intact Neurological: No New Focal Deficit Psy/Mental Status: Alert - Problem List Review Problem List Initiated/Reviewed/Updated: Yes - My Orders Last 24 Hours: My Active Orders 06/10/18 12:08 Ambulate [RC] BID 06/11/18 11:00 ceFAZolin [Ancef] 1 gm Premix Bag 1 bag IV Q8H 06/11/18 19:00 Communication Order [] DAILY - Assessment Assessment:: Cest xray -no PNTX Plan : chest tube to water seal this PM.
[2018-06-11] MEDS: Metoprolol Tartrate 5 MG/5 ML SDV IVPUSH PRN (12:01)
[2018-06-11] MEDS: Acetaminophen/HYDROcodone 325-5 MG Tab PO PRN (15:21)
[2018-06-11] MEDS: Temazepam 15 MG Cap PO PRN (21:05)
[2018-06-12] MEDS: HYDROmorphone 1 MG/ML Syringe IVPUSH PRN ×4 (01:23→11:15)
[2018-06-12] MEDS: ceFAZolin 1 GM in Premix Bag 1 BAG IV SCH ×2 (03:50→10:35)
[2018-06-12] MEDS: Acetaminophen/HYDROcodone 325-5 MG Tab PO PRN ×3 (08:26→21:06)
[2018-06-12] MEDS: amLODIPine 10 MG Tab PO SCH (08:29)
[2018-06-12] MEDS: Metoprolol Tartrate 5 MG/5 ML SDV IVPUSH PRN ×2 (09:26→21:06)
[2018-06-12] MEDS: D5 1/2 NS w/ 20 mEq/L KCl 1,000 ML IV SCH (10:33)
--- NOTE | 2018-06-12 12:21 | CR ---
Chest: Portable view of the chest was obtained. Comparison: Prior chest x-ray of 06/11/18. Heart size and mediastinum are normal. Small amount of subcutaneous air remains within the right chest wall. Mild increased density is noted within the right upper lung most likely representing pleural reaction around the chest tube. No pneumothorax is seen. Lungs otherwise are clear. Bony structures are grossly intact. Impression: 1. Right-sided chest tube. Increased density within the upper right lung most likely representing pleural reaction around the chest tube. 2. No pneumothorax is seen. Other incidental findings. Diagnostic code #3
--- NOTE | 2018-06-12 13:10 | PCM.CONSN ---
- General Info Date of Service: 06/12/18 Admission Dx/Problem (Free Text): Pneumothorax Subjective Update: In to see Robinson. He is doing well. His chest tube was removed today and he reports this has really helped his pain. BPs have been stable. He is still mildly tachy. He has no concerns. No nursing concerns. He has had a BM and has been urinating without problems. Functional Status: Reports: Pain Controlled, Tolerating Diet, Ambulating, Urinating, Incentive Spirometry. Denies: New Symptoms - Review of Systems General: Reports: No Symptoms. Denies: Fever, Weakness, Fatigue, Malaise, Chills HEENT: Reports: No Symptoms. Denies: Contact Lenses, Ear Pain, Eye Pain, Headaches, Sore Throat, Visual Changes Pulmonary: Reports: No Symptoms. Denies: Shortness of Breath, Cough, Sputum, Wheezing Cardiovascular: Reports: Chest Pain (s/p right sided chest tube. Pain at suture sight ). Denies: Palpitations, Dyspnea on Exertion, Edema, Lightheadedness Gastrointestinal: Reports: No Symptoms. Denies: Abdominal Pain, Constipation, Decreased Appetite, Diarrhea, Difficulty Swallowing, Nausea, Vomiting Genitourinary: Reports: No Symptoms. Denies: Dysuria, Frequency, Burning, Pain , Urgency Musculoskeletal: Reports: No Symptoms Skin: Reports: No Symptoms Neurological: Reports: No Symptoms. Denies: Confusion, Numbness, Difficulty Walking, Weakness, Gait Disturbance Psychiatric: Reports: No Symptoms - Patient Data Vitals - Most Recent: Last Vital Signs Temp 98.2 F 06/12/18 11:47 Pulse 110 H 06/12/18 11:47 Resp 16 06/12/18 11:47 BP 138/84 06/12/18 11:47 Pulse Ox 91 L 06/12/18 11:47 Weight - Most Recent: 172 lb I&O - Last 24 Hours: Intake & Output 06/11/18 06/12/18 06/12/18 22:59 06:59 14:59 Intake Total 2651 3131 120 Output Total 1815 2850 10 Balance 836 281 110 Lab Results Last 24 Hours: Laboratory Results - last 24 hr 06/12/18 06/12/18 Range/Units 05:44 05:44 Sodium 138 (136-145) mEq/L Potassium 3.9 (3.5-5.1) mEq/L Chloride 104 (98-107) mEq/L Carbon Dioxide 28 (21-32) mEq/L Anion Gap 9.9 (5-15) BUN 10 (7-18) mg/dL Creatinine 1.0 (0.7-1.3) mg/dL Est Cr Clr Drug Dosing 102.60 mL/min Estimated GFR (MDRD) > 60 (>60) mL/min BUN/Creatinine Ratio 10.0 L (14-18) Glucose 102 (74-106) mg/dL Calcium 8.6 (8.5-10.1) mg/dL Magnesium 2.0 (1.8-2.4) mg/dl Med Orders - Current: Current Medications Hydrocodone Bitart/Acetaminophen ([place] 325-5 Mg) 1 tab PO Q6H PRN PRN Reason: Pain Last Admin: 06/12/18 08:26 Dose: 1 tab Amlodipine Besylate (Norvasc) 10 mg PO DAILY [facility] Last Admin: 06/12/18 08:29 Dose: 10 mg Potassium Chloride/Dextrose/Sod Cl (D5 1/2 Ns W/ 20 Meq/L Kcl) 1,000 mls @ 100 mls/hr IV ASDIRECTED [facility] Last Admin: 06/12/18 10:33 Dose: 100 mls/hr Metoprolol Tartrate (Lopressor) 5 mg IVPUSH Q4H PRN PRN Reason: Hypertension Last Admin: 06/12/18 09:26 Dose: 5 mg Morphine Sulfate (Morphine) 2 mg IVPUSH Q1H PRN PRN Reason: Pain (moderate 4-6) Last Admin: 06/09/18 18:30 Dose: 2 mg Sodium Chloride (Saline Flush) 10 ml FLUSH ASDIRECTED PRN PRN Reason: Keep Vein Open Last Admin: 06/09/18 13:41 Dose: 10 ml Temazepam (Restoril) 15 mg PO BEDTIME PRN PRN Reason: Insomnia Last Admin: 06/11/18 21:05 Dose: 15 mg Terazosin HCl (Hytrin) 2 mg PO BID [facility] Last Admin: 06/12/18 08:31 Dose: 2 mg Discontinued Medications Aspirin (Aspirin) 324 mg PO ONETIME ONE Stop: 06/09/18 13:22 Last Admin: 06/09/18 13:32 Dose: 324 mg Clonidine HCl (Catapres) 0.2 mg PO ONETIME ONE Stop: 06/09/18 21:01 Last Admin: 06/09/18 20:37 Dose: 0.2 mg Hydralazine HCl (Apresoline) 20 mg IVPUSH Q6H PRN PRN Reason: Hypertension Last Admin: 06/09/18 18:32 Dose: 20 mg Hydralazine HCl (Apresoline) 20 mg IVPUSH Q4H PRN PRN Reason: Hypertension Hydromorphone HCl (Dilaudid) 1 mg IVPUSH Q2H PRN PRN Reason: Pain Last Admin: 06/12/18 11:15 Dose: 1 mg Lactated Ringer's (Ringers, Lactated) 1,000 mls @ 50 mls/hr IV ASDIRECTED [facility] Last Admin: 06/09/18 16:35 Dose: 50 mls/hr Cefazolin Sodium/Dextrose (Ancef) 50 mls @ 100 mls/hr IV Q8H [facility] Last Admin: 06/10/18 18:44 Dose: 100 mls/hr Cefazolin Sodium/Dextrose (Ancef) 50 mls @ 100 mls/hr IV Q8H [facility] Last Admin: 06/11/18 03:06 Dose: 100 mls/hr Cefazolin Sodium/Dextrose 1 gm (/ Premix) 50 mls @ 100 mls/hr IV Q8H [facility] Last Admin: 06/11/18 08:04 Dose: Not Given Cefazolin Sodium/Dextrose 1 gm (/ Premix) 50 mls @ 100 mls/hr IV Q8H [facility] Last Admin: 06/12/18 10:35 Dose: 100 mls/hr Ketamine HCl (Ketalar) Confirm Administered Dose 500 mg .ROUTE .STK-MED ONE Stop: 06/09/18 15:28 Ketorolac Tromethamine (Toradol) 60 mg IM ONETIME ONE Stop: 06/09/18 21:10 Last Admin: 06/09/18 21:22 Dose: 60 mg Ketorolac Tromethamine (Toradol) 30 mg IVPUSH Q6H [facility] Stop: 06/11/18 21:01 Last Admin: 06/11/18 21:06 Dose: 30 mg Lidocaine HCl (Xylocaine 1%) Confirm Administered Dose 10 ml .ROUTE .STK-MED ONE Stop: 06/09/18 14:42 Last Admin: 06/09/18 16:23 Dose: Not Given Lidocaine HCl (Xylocaine 1%) 10 ml INJECT ONETIME ONE Stop: 06/09/18 16:21 Last Admin: 06/09/18 16:23 Dose: 10 ml Midazolam HCl (Versed 1 Mg/Ml) Confirm Administered Dose 2 mg .ROUTE .STK-MED ONE Stop: 06/09/18 15:28 Morphine Sulfate (Morphine) 2 mg IVPUSH ONETIME ONE Stop: 06/09/18 16:55 Last Admin: 06/09/18 17:00 Dose: 2 mg Morphine Sulfate (Morphine) 4 mg IVPUSH ONETIME ONE Stop: 06/09/18 18:21 Last Admin: 06/09/18 20:19 Dose: 4 mg Propofol (Diprivan 20 Ml) Confirm Administered Dose 200 mg .ROUTE .STK-MED ONE Stop: 06/09/18 15:28 - Exam Quality Assessment: DVT Prophylaxis General: Alert, Oriented, Cooperative, No Acute Distress HEENT: Pupils Equal, Pupils Reactive, EOMI, Mucous Membr. Moist/[place] Neck: Supple, Trachea Midline, No JVD Lungs: Clear to Auscultation, Normal Respiratory Effort Cardiovascular: Regular Rate, Regular Rhythm GI/Abdominal Exam: Normal Bowel Sounds, Soft, Non-Tender, No Distention, No Abnormal Bruit (Male) Exam: Deferred Back Exam: Normal Inspection, Full Range of Motion Extremities: Normal Inspection, Normal Range of Motion, Non-Tender, No Pedal Edema, Normal Capillary Refill Peripheral Pulses: 4+: Radial (L), Radial (R), Dorsalis Pedis (L), Dorsalis Pedis (R) Skin: Warm, Dry, Intact Wound/Incisions: Dressing Dry and Intact, No Drainage Neurological: No New Focal Deficit Psy/Mental Status: Alert, Normal Affect, Normal Mood Consult PN Assessment/Plan POD#: 4 (1) Elevated blood-pressure reading without diagnosis of hypertension SNOMED Code(s): 602949502 Code(s): R03.0 - ELEVATED BLOOD-PRESSURE READING, W/O DIAGNOSIS OF HTN Current Visit: Yes (2) Spontaneous pneumothorax SNOMED Code(s): 46578737 Code(s): J93.83 - OTHER PNEUMOTHORAX Current Visit: No Problem List Initiated/Reviewed/Updated: Yes My Orders Last 24 Hours: My Active Orders 06/13/18 05:11 MAGNESIUM [CHEM] AM 10/04/18 05:11 MAGNESIUM [CHEM] AM 06/15/18 05:11 MAGNESIUM [CHEM] AM Plan: I/P: Acute: Spontaneous right sided pneumothorax s/p chest tube PO day 4 -Reportedly had chest pain and irregular EKG in [facility] -Was told to come to ED -Large right sided pneumothorax noted on CXR -GS placed chest tube -> removed today -Continue to utilize IS -Management per primary team Malignant HTN, improved -BP 182/116 in ED -> improved today -Exacerbated by pain/stress from being gone from work -Patient reports elevated BPs prior but has not seen primary care in some time -Started on 10mg norvasc and 2mg PO Hytrin -PRN Hydralazine -Follow-up with PCP at discharge -Monitor Inactive: History of ethanol, 16 drinks per week; query withdrawal -Started on CIWA protocol Q4H-->Q8H -2 on admission (highest recorded during stay) -0 for last few days -Stopped today -ETOH 0.00 on admission -UDS negative Chronic: None Plan: Consult requested by Dr. Grace, general surgeon Other orders as indicated above No home meds Daily labs as ordered DVT prophylaxis: Per primary provider -SCDs Code Status: Full Code; Does not have PCP and will need to establish
--- NOTE | 2018-06-12 14:40 | CR ---
Chest: Portable view of the chest was obtained. Comparison: Prior chest x-ray performed earlier on same day (11:53 AM). Chest tube has been withdrawn. Small pneumothorax is noted. Slight parenchymal density is noted within the right upper lung. Lungs otherwise are clear. Heart size and mediastinum are normal. Bony structures are grossly intact. Small amount of subcutaneous air is noted within the right chest wall. Impression: 1. Chest tube has been withdrawn. Small pneumothorax is seen. 2. Mild parenchymal density remains within the right upper lung most likely residual from prior chest tube in place. Diagnostic code #3
--- NOTE | 2018-06-12 15:03 | PCM.PN ---
- General Info Date of Service: 06/12/18 - Review of Systems General: Reports: No Symptoms Cardiovascular: Reports: No Symptoms - Patient Data Vitals - Most Recent: Last Vital Signs Temp 98.2 F 06/12/18 11:47 Pulse 110 H 06/12/18 11:47 Resp 16 06/12/18 11:47 BP 138/84 06/12/18 11:47 Pulse Ox 91 L 06/12/18 11:47 Weight - Most Recent: 172 lb I&O - Last 24 Hours: Intake & Output 06/11/18 06/12/18 06/12/18 22:59 06:59 14:59 Intake Total 2651 3131 120 Output Total 1815 2850 10 Balance 836 281 110 Lab Results Last 24 Hours: Laboratory Results - last 24 hr 06/12/18 06/12/18 Range/Units 05:44 05:44 Sodium 138 (136-145) mEq/L Potassium 3.9 (3.5-5.1) mEq/L Chloride 104 (98-107) mEq/L Carbon Dioxide 28 (21-32) mEq/L Anion Gap 9.9 (5-15) BUN 10 (7-18) mg/dL Creatinine 1.0 (0.7-1.3) mg/dL Est Cr Clr Drug Dosing 102.60 mL/min Estimated GFR (MDRD) > 60 (>60) mL/min BUN/Creatinine Ratio 10.0 L (14-18) Glucose 102 (74-106) mg/dL Calcium 8.6 (8.5-10.1) mg/dL Magnesium 2.0 (1.8-2.4) mg/dl Med Orders - Current: Current Medications Hydrocodone Bitart/Acetaminophen ([place] 325-5 Mg) 1 tab PO Q6H PRN PRN Reason: Pain Last Admin: 06/12/18 14:37 Dose: 1 tab Amlodipine Besylate (Norvasc) 10 mg PO DAILY [facility] Last Admin: 06/12/18 08:29 Dose: 10 mg Potassium Chloride/Dextrose/Sod Cl (D5 1/2 Ns W/ 20 Meq/L Kcl) 1,000 mls @ 100 mls/hr IV ASDIRECTED [facility] Last Admin: 06/12/18 10:33 Dose: 100 mls/hr Metoprolol Tartrate (Lopressor) 5 mg IVPUSH Q4H PRN PRN Reason: Hypertension Last Admin: 06/12/18 09:26 Dose: 5 mg Morphine Sulfate (Morphine) 2 mg IVPUSH Q1H PRN PRN Reason: Pain (moderate 4-6) Last Admin: 06/09/18 18:30 Dose: 2 mg Sodium Chloride (Saline Flush) 10 ml FLUSH ASDIRECTED PRN PRN Reason: Keep Vein Open Last Admin: 06/09/18 13:41 Dose: 10 ml Temazepam (Restoril) 15 mg PO BEDTIME PRN PRN Reason: Insomnia Last Admin: 06/11/18 21:05 Dose: 15 mg Terazosin HCl (Hytrin) 2 mg PO BID [facility] Last Admin: 06/12/18 08:31 Dose: 2 mg Discontinued Medications Aspirin (Aspirin) 324 mg PO ONETIME ONE Stop: 06/09/18 13:22 Last Admin: 06/09/18 13:32 Dose: 324 mg Clonidine HCl (Catapres) 0.2 mg PO ONETIME ONE Stop: 06/09/18 21:01 Last Admin: 06/09/18 20:37 Dose: 0.2 mg Hydralazine HCl (Apresoline) 20 mg IVPUSH Q6H PRN PRN Reason: Hypertension Last Admin: 06/09/18 18:32 Dose: 20 mg Hydralazine HCl (Apresoline) 20 mg IVPUSH Q4H PRN PRN Reason: Hypertension Hydromorphone HCl (Dilaudid) 1 mg IVPUSH Q2H PRN PRN Reason: Pain Last Admin: 06/12/18 11:15 Dose: 1 mg Lactated Ringer's (Ringers, Lactated) 1,000 mls @ 50 mls/hr IV ASDIRECTED [facility] Last Admin: 06/09/18 16:35 Dose: 50 mls/hr Cefazolin Sodium/Dextrose (Ancef) 50 mls @ 100 mls/hr IV Q8H [facility] Last Admin: 06/10/18 18:44 Dose: 100 mls/hr Cefazolin Sodium/Dextrose (Ancef) 50 mls @ 100 mls/hr IV Q8H [facility] Last Admin: 06/11/18 03:06 Dose: 100 mls/hr Cefazolin Sodium/Dextrose 1 gm (/ Premix) 50 mls @ 100 mls/hr IV Q8H [facility] Last Admin: 06/11/18 08:04 Dose: Not Given Cefazolin Sodium/Dextrose 1 gm (/ Premix) 50 mls @ 100 mls/hr IV Q8H [facility] Last Admin: 06/12/18 10:35 Dose: 100 mls/hr Ketamine HCl (Ketalar) Confirm Administered Dose 500 mg .ROUTE .STK-MED ONE Stop: 06/09/18 15:28 Ketorolac Tromethamine (Toradol) 60 mg IM ONETIME ONE Stop: 06/09/18 21:10 Last Admin: 06/09/18 21:22 Dose: 60 mg Ketorolac Tromethamine (Toradol) 30 mg IVPUSH Q6H [facility] Stop: 06/11/18 21:01 Last Admin: 06/11/18 21:06 Dose: 30 mg Lidocaine HCl (Xylocaine 1%) Confirm Administered Dose 10 ml .ROUTE .STK-MED ONE Stop: 06/09/18 14:42 Last Admin: 06/09/18 16:23 Dose: Not Given Lidocaine HCl (Xylocaine 1%) 10 ml INJECT ONETIME ONE Stop: 06/09/18 16:21 Last Admin: 06/09/18 16:23 Dose: 10 ml Midazolam HCl (Versed 1 Mg/Ml) Confirm Administered Dose 2 mg .ROUTE .STK-MED ONE Stop: 06/09/18 15:28 Morphine Sulfate (Morphine) 2 mg IVPUSH ONETIME ONE Stop: 06/09/18 16:55 Last Admin: 06/09/18 17:00 Dose: 2 mg Morphine Sulfate (Morphine) 4 mg IVPUSH ONETIME ONE Stop: 06/09/18 18:21 Last Admin: 06/09/18 20:19 Dose: 4 mg Propofol (Diprivan 20 Ml) Confirm Administered Dose 200 mg .ROUTE .STK-MED ONE Stop: 06/09/18 15:28 - Exam General: Alert, Oriented, Cooperative, No Acute Distress HEENT: Pupils Equal Neck: Supple Lungs: Clear to Auscultation GI/Abdominal Exam: Normal Bowel Sounds (Male) Exam: No Hernia Back Exam: Normal Inspection Extremities: Normal Inspection Skin: Warm Wound/Incisions: Dressing Dry and Intact - Problem List Review Problem List Initiated/Reviewed/Updated: Yes - My Orders Last 24 Hours: My Active Orders 06/13/18 08:00 Chest 2V [CR] Routine - Assessment Assessment:: Chest tube was placed to water seal last night without symptoms CXR this AM revealed no pneumothorax and chest tube was removed without incident Follow up chest xray looks to have right lung well expanded Radiologist reads small right PNTX Shest clear with good breath sounds Plan: observe and repeat PA/LAt [facility] in AM.
[2018-06-12] MEDS: Temazepam 15 MG Cap PO PRN (21:06)
[2018-06-13] MEDS: Acetaminophen/HYDROcodone 325-5 MG Tab PO PRN ×2 (05:49→11:58)
--- NOTE | 2018-06-13 06:41 | PCM.CONSN ---
- General Info Date of Service: 06/13/18 Admission Dx/Problem (Free Text): Pneumothorax Subjective Update: In to see Robinson. He is sitting in bed. BP has remained mildly elevated and HR is now WNL. We discussed warning signs of hypertensive emergencies and how to take a home BP. We also discussed what to do when taking his home BP and if it is very elevated. From a hospitalist standpoint he is doing well. He has no concerns. Pain is controlled and he is ambulating. No respiratory concerns. No nursing concerns. Discussed BP status with Dr. Espinoza and he agrees to plan with monitoring BP/HR on discharge and following up with PCP as directed. Discussed case with Dr. Grace and he will be discharged today. Functional Status: Reports: Pain Controlled, Tolerating Diet, Ambulating, Urinating, Incentive Spirometry. Denies: New Symptoms - Review of Systems General: Reports: No Symptoms. Denies: Fever, Weakness, Fatigue, Malaise, Chills HEENT: Reports: No Symptoms. Denies: Eye Pain, Headaches, Sinus Congestion, Sore Throat, Visual Changes Pulmonary: Reports: No Symptoms. Denies: Shortness of Breath, Cough, Sputum, Wheezing Cardiovascular: Reports: Chest Pain (s/p chest tube - at location of sutures ). Denies: Palpitations, Dyspnea on Exertion, Edema, Lightheadedness Gastrointestinal: Reports: No Symptoms. Denies: Abdominal Pain, Constipation, Diarrhea, Difficulty Swallowing, Nausea, Vomiting Genitourinary: Reports: No Symptoms Musculoskeletal: Reports: No Symptoms Skin: Reports: No Symptoms Neurological: Reports: No Symptoms. Denies: Confusion Psychiatric: Reports: No Symptoms - Patient Data Vitals - Most Recent: Last Vital Signs Temp 98.2 F 06/13/18 05:47 Pulse 92 06/13/18 05:47 Resp 18 06/13/18 05:47 BP 140/96 H 06/13/18 05:47 Pulse Ox 94 L 06/13/18 05:47 Weight - Most Recent: 164 lb I&O - Last 24 Hours: Intake & Output 06/12/18 06/12/18 06/13/18 14:59 22:59 06:59 Intake Total 480 1280 800 Output Total 10 1975 1050 Balance 254 -515 -625 Lab Results Last 24 Hours: Laboratory Results - last 24 hr 06/12/18 06/12/18 Range/Units 05:44 05:44 Sodium 138 (136-145) mEq/L Potassium 3.9 (3.5-5.1) mEq/L Chloride 104 (98-107) mEq/L Carbon Dioxide 28 (21-32) mEq/L Anion Gap 9.9 (5-15) BUN 10 (7-18) mg/dL Creatinine 1.0 (0.7-1.3) mg/dL Est Cr Clr Drug Dosing 102.60 mL/min Estimated GFR (MDRD) > 60 (>60) mL/min BUN/Creatinine Ratio 10.0 L (14-18) Glucose 102 (74-106) mg/dL Calcium 8.6 (8.5-10.1) mg/dL Magnesium 2.0 (1.8-2.4) mg/dl Med Orders - Current: Current Medications Hydrocodone Bitart/Acetaminophen ([place] 325-5 Mg) 1 tab PO Q6H PRN PRN Reason: Pain Last Admin: 06/13/18 05:49 Dose: 1 tab Amlodipine Besylate (Norvasc) 10 mg PO DAILY [facility] Last Admin: 06/12/18 08:29 Dose: 10 mg Metoprolol Tartrate (Lopressor) 5 mg IVPUSH Q4H PRN PRN Reason: Hypertension Last Admin: 06/12/18 21:06 Dose: 5 mg Morphine Sulfate (Morphine) 2 mg IVPUSH Q1H PRN PRN Reason: Pain (moderate 4-6) Last Admin: 06/09/18 18:30 Dose: 2 mg Sodium Chloride (Saline Flush) 10 ml FLUSH ASDIRECTED PRN PRN Reason: Keep Vein Open Last Admin: 06/09/18 13:41 Dose: 10 ml Temazepam (Restoril) 15 mg PO BEDTIME PRN PRN Reason: Insomnia Last Admin: 06/12/18 21:06 Dose: 15 mg Terazosin HCl (Hytrin) 2 mg PO BID [facility] Last Admin: 06/12/18 21:02 Dose: 2 mg Discontinued Medications Aspirin (Aspirin) 324 mg PO ONETIME ONE Stop: 06/09/18 13:22 Last Admin: 06/09/18 13:32 Dose: 324 mg Clonidine HCl (Catapres) 0.2 mg PO ONETIME ONE Stop: 06/09/18 21:01 Last Admin: 06/09/18 20:37 Dose: 0.2 mg Hydralazine HCl (Apresoline) 20 mg IVPUSH Q6H PRN PRN Reason: Hypertension Last Admin: 06/09/18 18:32 Dose: 20 mg Hydralazine HCl (Apresoline) 20 mg IVPUSH Q4H PRN PRN Reason: Hypertension Hydromorphone HCl (Dilaudid) 1 mg IVPUSH Q2H PRN PRN Reason: Pain Last Admin: 06/12/18 11:15 Dose: 1 mg Lactated Ringer's (Ringers, Lactated) 1,000 mls @ 50 mls/hr IV ASDIRECTED [facility] Last Admin: 06/09/18 16:35 Dose: 50 mls/hr Potassium Chloride/Dextrose/Sod Cl (D5 1/2 Ns W/ 20 Meq/L Kcl) 1,000 mls @ 100 mls/hr IV ASDIRECTED [facility] Last Admin: 06/12/18 10:33 Dose: 100 mls/hr Cefazolin Sodium/Dextrose (Ancef) 50 mls @ 100 mls/hr IV Q8H [facility] Last Admin: 06/10/18 18:44 Dose: 100 mls/hr Cefazolin Sodium/Dextrose (Ancef) 50 mls @ 100 mls/hr IV Q8H [facility] Last Admin: 06/11/18 03:06 Dose: 100 mls/hr Cefazolin Sodium/Dextrose 1 gm (/ Premix) 50 mls @ 100 mls/hr IV Q8H [facility] Last Admin: 06/11/18 08:04 Dose: Not Given Cefazolin Sodium/Dextrose 1 gm (/ Premix) 50 mls @ 100 mls/hr IV Q8H [facility] Last Admin: 06/12/18 10:35 Dose: 100 mls/hr Ketamine HCl (Ketalar) Confirm Administered Dose 500 mg .ROUTE .STK-MED ONE Stop: 06/09/18 15:28 Ketorolac Tromethamine (Toradol) 60 mg IM ONETIME ONE Stop: 06/09/18 21:10 Last Admin: 06/09/18 21:22 Dose: 60 mg Ketorolac Tromethamine (Toradol) 30 mg IVPUSH Q6H [facility] Stop: 06/11/18 21:01 Last Admin: 06/11/18 21:06 Dose: 30 mg Lidocaine HCl (Xylocaine 1%) Confirm Administered Dose 10 ml .ROUTE .STK-MED ONE Stop: 06/09/18 14:42 Last Admin: 06/09/18 16:23 Dose: Not Given Lidocaine HCl (Xylocaine 1%) 10 ml INJECT ONETIME ONE Stop: 06/09/18 16:21 Last Admin: 06/09/18 16:23 Dose: 10 ml Midazolam HCl (Versed 1 Mg/Ml) Confirm Administered Dose 2 mg .ROUTE .STK-MED ONE Stop: 06/09/18 15:28 Morphine Sulfate (Morphine) 2 mg IVPUSH ONETIME ONE Stop: 06/09/18 16:55 Last Admin: 06/09/18 17:00 Dose: 2 mg Morphine Sulfate (Morphine) 4 mg IVPUSH ONETIME ONE Stop: 06/09/18 18:21 Last Admin: 06/09/18 20:19 Dose: 4 mg Propofol (Diprivan 20 Ml) Confirm Administered Dose 200 mg .ROUTE .STK-MED ONE Stop: 06/09/18 15:28 - Exam Quality Assessment: DVT Prophylaxis General: Alert, Oriented, Cooperative, No Acute Distress HEENT: Pupils Equal, Pupils Reactive, EOMI, Mucous Membr. Moist/[place] Neck: Supple, Trachea Midline, No JVD Lungs: Clear to Auscultation, Normal Respiratory Effort Cardiovascular: Regular Rate, Regular Rhythm GI/Abdominal Exam: Normal Bowel Sounds, Soft, Non-Tender, No Distention, No Abnormal Bruit (Male) Exam: Deferred Back Exam: Normal Inspection, Full Range of Motion Extremities: Normal Inspection, Normal Range of Motion, Non-Tender, No Pedal Edema, Normal Capillary Refill Peripheral Pulses: 3+: Radial (L), Radial (R), Dorsalis Pedis (L), Dorsalis Pedis (R) Skin: Warm, Dry, Intact Wound/Incisions: Dressing Dry and Intact, No Drainage Neurological: No New Focal Deficit Psy/Mental Status: Alert, Normal Affect, Normal Mood Consult PN Assessment/Plan POD#: 5 (1) Elevated blood-pressure reading without diagnosis of hypertension SNOMED Code(s): 735270149 Code(s): R03.0 - ELEVATED BLOOD-PRESSURE READING, W/O DIAGNOSIS OF HTN Current Visit: Yes (2) Spontaneous pneumothorax SNOMED Code(s): 40481464 Code(s): J93.83 - OTHER PNEUMOTHORAX Current Visit: No Problem List Initiated/Reviewed/Updated: Yes My Orders Last 24 Hours: My Active Orders 06/13/18 05:40 MAGNESIUM [CHEM] AM 06/14/18 05:11 MAGNESIUM [CHEM] AM 06/15/18 05:11 MAGNESIUM [CHEM] AM Plan: I/P: Acute: Spontaneous right sided pneumothorax s/p chest tube PO day 5 -Reportedly had chest pain and irregular EKG in [facility] -Was told to come to ED -Large right sided pneumothorax noted on CXR -GS placed chest tube -> removed today -Continue to utilize IS -Management per primary team Malignant HTN, improved -BP 182/116 in ED -> improved today -Exacerbated by pain/stress from being gone from work/fighting with gf -Patient reports elevated BPs prior but has not seen primary care in some time -Started on 10mg norvasc and 2mg PO Hytrin -PRN Hydralazine -Follow-up with PCP at discharge -Monitor -Will stop medications at discharge and instruct patient to record BP and HR , bringing with to PCP Inactive: History of ethanol, 16 drinks per week; query withdrawal -Started on CIWA protocol Q4H-->Q8H -2 on admission (highest recorded during stay) -0 for last few days -Stopped today -ETOH 0.00 on admission -UDS negative Chronic: None Plan: Consult requested by Dr. Grace, general surgeon Other orders as indicated above No home meds Daily labs as ordered DVT prophylaxis: Per primary provider - SCDs Code Status: Full Code; Does not have PCP and will need to establish with one locally in [place] From a hospitalist standpoint Robinson is doing well. He was instructed to establish with a PCP in [place] as it is very close to his home. He was educated on warning signs of hypertensive emergencies and how to take his home BP and HR. He was instructed to obtain a BP cuff and take his BP and HR BID. He should record this and then bring this with to all medical appointments.
[2018-06-13] MEDS: amLODIPine 10 MG Tab PO SCH (08:30)
--- NOTE | 2018-06-13 09:03 | CR ---
Chest: 2 views of the chest were obtained. Comparison: Prior chest x-ray of 06/12/18. Previous pneumothorax has resolved. Slight parenchymal density is noted within the upper right lung which remain stable. Lungs otherwise are clear. Heart size and mediastinum are normal. Small amount of subcutaneous air remains within the right lateral chest wall. Impression: 1. Previous pneumothorax is no longer seen. 2. Other incidental findings as noted above. Diagnostic code #2
--- NOTE | 2018-06-13 09:18 | PCM.DCSUM1 ---
Discharge Summary - Hospital Course Diagnosis: Stroke: No - Discharge Data Discharge Date: 06/13/18 Discharge Disposition: Home, Self-Care 01 Condition: Good - Patient Summary/Data Consults: Consultations 06/09/18 17:05 Consult to Physician [CONS] Routine - Patient Instructions Diet: Heart Healthy Diet Activity: As Tolerated Driving: Do Not Drive (do not drive or work while takig percocet) Other/Special Instructions: -Establish with a primary care provider as we have discussed. -Follow-up with PCP regarding your higher BP and HR while here. - Obtain a blood pressure cuff. Take your blood pressure twice daily, along with your heart rate, and record this in a journal. Take this journal with to all medical appointments. Let your primary care provider know your HR and BP were high here. - Discharge Plan *PRESCRIPTION DRUG MONITORING PROGRAM REVIEWED*: No *COPY OF PRESCRIPTION DRUG MONITORING REPORT IN PATIENT [place]: No Prescriptions/Med Rec: Acetaminophen/HYDROcodone [[place] 325-5 MG] 1 tab PO Q6H PRN #20 tablet PRN Reason: Pain Home Medications: Home Meds Acetaminophen/HYDROcodone [[place] 325-5 MG] 1 tab PO Q6H PRN #20 tablet 06/13/18 [Rx] Patient Handouts: How to Take Your Blood Pressure, [id number], Hypertension, [id number], Pneumothorax, Chest Tube Insertion, Adult, Care After Forms: ED Department Discharge Referrals: Yvon Tijerina MD [Physician] - (one week) Ranjith Orozco MD [Physician] - (one week) - General Info Date of Service: 06/13/18 Admission Dx/Problem (Free Text: Pneumothorax Subjective Update: In to see [facility]. He is sitting in bed. BP has remained mildly elevated and HR is now WNL. We discussed warning signs of hypertensive emergencies and how to take a home BP. We also discussed what to do when taking his home BP and if it is very elevated. From a hospitalist standpoint he is doing well. He has no concerns. Pain is controlled and he is ambulating. No respiratory concerns. No nursing concerns. Discussed BP status with Dr. Espinoza and he agrees to plan with monitoring BP/HR on discharge and following up with PCP as directed. Discussed case with Dr. Grace and he will be discharged today. Functional Status: Reports: Pain Controlled - Review of Systems General: Reports: No Symptoms HEENT: Reports: No Symptoms Pulmonary: Reports: No Symptoms Cardiovascular: Reports: No Symptoms Gastrointestinal: Reports: No Symptoms Genitourinary: Reports: No Symptoms Musculoskeletal: Reports: No Symptoms Skin: Reports: No Symptoms Neurological: Reports: No Symptoms Psychiatric: Reports: No Symptoms - Patient Data Vitals - Most Recent: Last Vital Signs Temp 98.8 F 06/13/18 07:44 Pulse 89 06/13/18 07:44 Resp 14 06/13/18 07:44 BP 148/98 H 06/13/18 08:30 Pulse Ox 96 06/13/18 07:44 Weight - Most Recent: 164 lb I&O - Last 24 hours: Intake & Output 06/12/18 06/13/18 06/13/18 22:59 06:59 14:59 Intake Total 1280 800 Output Total 1975 1050 Balance -695 -250 Lab Results - Last 24 hrs: Laboratory Results - last 24 hr 06/13/18 06/13/18 Range/Units 05:40 05:40 Sodium 136 (136-145) mEq/L Potassium 4.1 (3.5-5.1) mEq/L Chloride 100 (98-107) mEq/L Carbon Dioxide 29 (21-32) mEq/L Anion Gap 11.1 (5-15) BUN 16 (7-18) mg/dL Creatinine 1.0 (0.7-1.3) mg/dL Est Cr Clr Drug Dosing 102.60 mL/min Estimated GFR (MDRD) > 60 (>60) mL/min BUN/Creatinine Ratio 16.0 (14-18) Glucose 93 (74-106) mg/dL Calcium 8.9 (8.5-10.1) mg/dL Magnesium 2.2 (1.8-2.4) mg/dl Med Orders - Current: Current Medications Hydrocodone Bitart/Acetaminophen ([place] 325-5 Mg) 1 tab PO Q6H PRN PRN Reason: Pain Last Admin: 06/13/18 05:49 Dose: 1 tab Amlodipine Besylate (Norvasc) 10 mg PO DAILY VIANEY Last Admin: 06/13/18 08:30 Dose: 10 mg Metoprolol Tartrate (Lopressor) 5 mg IVPUSH Q4H PRN PRN Reason: Hypertension Last Admin: 06/12/18 21:06 Dose: 5 mg Morphine Sulfate (Morphine) 2 mg IVPUSH Q1H PRN PRN Reason: Pain (moderate 4-6) Last Admin: 06/09/18 18:30 Dose: 2 mg Sodium Chloride (Saline Flush) 10 ml FLUSH ASDIRECTED PRN PRN Reason: Keep Vein Open Last Admin: 06/09/18 13:41 Dose: 10 ml Temazepam (Restoril) 15 mg PO BEDTIME PRN PRN Reason: Insomnia Last Admin: 06/12/18 21:06 Dose: 15 mg Terazosin HCl (Hytrin) 2 mg PO BID [facility] Last Admin: 06/13/18 08:30 Dose: 2 mg Discontinued Medications Aspirin (Aspirin) 324 mg PO ONETIME ONE Stop: 06/09/18 13:22 Last Admin: 06/09/18 13:32 Dose: 324 mg Clonidine HCl (Catapres) 0.2 mg PO ONETIME ONE Stop: 06/09/18 21:01 Last Admin: 06/09/18 20:37 Dose: 0.2 mg Hydralazine HCl (Apresoline) 20 mg IVPUSH Q6H PRN PRN Reason: Hypertension Last Admin: 06/09/18 18:32 Dose: 20 mg Hydralazine HCl (Apresoline) 20 mg IVPUSH Q4H PRN PRN Reason: Hypertension Hydromorphone HCl (Dilaudid) 1 mg IVPUSH Q2H PRN PRN Reason: Pain Last Admin: 06/12/18 11:15 Dose: 1 mg Lactated Ringer's (Ringers, Lactated) 1,000 mls @ 50 mls/hr IV ASDIRECTED [facility] Last Admin: 06/09/18 16:35 Dose: 50 mls/hr Potassium Chloride/Dextrose/Sod Cl (D5 1/2 Ns W/ 20 Meq/L Kcl) 1,000 mls @ 100 mls/hr IV ASDIRECTED [facility] Last Admin: 06/12/18 10:33 Dose: 100 mls/hr Cefazolin Sodium/Dextrose (Ancef) 50 mls @ 100 mls/hr IV Q8H [facility] Last Admin: 06/10/18 18:44 Dose: 100 mls/hr Cefazolin Sodium/Dextrose (Ancef) 50 mls @ 100 mls/hr IV Q8H [facility] Last Admin: 06/11/18 03:06 Dose: 100 mls/hr Cefazolin Sodium/Dextrose 1 gm (/ Premix) 50 mls @ 100 mls/hr IV Q8H [facility] Last Admin: 06/11/18 08:04 Dose: Not Given Cefazolin Sodium/Dextrose 1 gm (/ Premix) 50 mls @ 100 mls/hr IV Q8H [facility] Last Admin: 06/12/18 10:35 Dose: 100 mls/hr Ketamine HCl (Ketalar) Confirm Administered Dose 500 mg .ROUTE .STK-MED ONE Stop: 06/09/18 15:28 Ketorolac Tromethamine (Toradol) 60 mg IM ONETIME ONE Stop: 06/09/18 21:10 Last Admin: 06/09/18 21:22 Dose: 60 mg Ketorolac Tromethamine (Toradol) 30 mg IVPUSH Q6H [facility] Stop: 06/11/18 21:01 Last Admin: 06/11/18 21:06 Dose: 30 mg Lidocaine HCl (Xylocaine 1%) Confirm Administered Dose 10 ml .ROUTE .STK-MED ONE Stop: 06/09/18 14:42 Last Admin: 06/09/18 16:23 Dose: Not Given Lidocaine HCl (Xylocaine 1%) 10 ml INJECT ONETIME ONE Stop: 06/09/18 16:21 Last Admin: 06/09/18 16:23 Dose: 10 ml Midazolam HCl (Versed 1 Mg/Ml) Confirm Administered Dose 2 mg .ROUTE .STK-MED ONE Stop: 06/09/18 15:28 Morphine Sulfate (Morphine) 2 mg IVPUSH ONETIME ONE Stop: 06/09/18 16:55 Last Admin: 06/09/18 17:00 Dose: 2 mg Morphine Sulfate (Morphine) 4 mg IVPUSH ONETIME ONE Stop: 06/09/18 18:21 Last Admin: 06/09/18 20:19 Dose: 4 mg Propofol (Diprivan 20 Ml) Confirm Administered Dose 200 mg .ROUTE .STK-MED ONE Stop: 06/09/18 15:28 - Exam General: Reports: Alert, Oriented, Cooperative, No Acute Distress HEENT: Reports: Pupils Equal Neck: Reports: Supple Lungs: Reports: Clear to Auscultation Cardiovascular: Reports: Regular Rate GI/Abdominal Exam: Normal Bowel Sounds (Male) Exam: No Hernia Rectal (Males) Exam: Normal Exam Back Exam: Reports: Normal Inspection Extremities: Normal Inspection Skin: Reports: Warm Wound/Incisions: Reports: Healing Well Neurological: Reports: No New Focal Deficit Psy/Mental Status: Reports: Alert
--- NOTE | 2018-06-13 18:42 | DISCH ---
ADMISSION DATE: 06/09/2018 DISCHARGE DATE: 06/13/2018 ADMITTING DIAGNOSIS: Spontaneous pneumothorax, right chest. DISCHARGE DIAGNOSIS: Status post successful re-expansion of the right lung after tube thoracostomy. HOSPITAL COURSE: The patient was admitted via the emergency department with chest x-ray consistent with physical findings of decreased breath sounds on the right chest. He had no trauma and never had similar experience. He underwent a placement of tube thoracostomy under IV sedation with Anesthesia assistance, and the chest tube was placed to suction for 48 hours and then placed to water seal for another 18 hours and followup chest x-ray with chest tube on water seal revealed no pneumothorax. Chest tube was successfully discontinued and post discontinuation of chest tube, x-ray revealed a very small right apical pneumothorax. The patient was observed over the evening and a followup PA and lateral chest x-ray revealed no evidence of pneumothorax. He was seen in consultation by the Medicine Service and thought to have mild hypertension but was not started on any new hypertensive medication at discharge. Please see the hospitalist records. The patient was treated during his hospital stay with [facility] but hospitalist consultants did not think that medication was needed at the time of discharge and arrangements have been made for followup with patient's family physician. At the time of discharge, he was actually ambulatory, tolerating a regular diet. His chest tube has been successfully removed and chest x-ray reveals no further evidence of hemo or pneumothorax. The patient is provided a prescription for Percocet for analgesia. Arrangements were made for followup as noted. In this way, he may contact me should he have questions or problems. FINAL DIAGNOSIS: DISCHARGE MEDICATIONS: DIET: ACTIVITY: FOLLOW-UP: [facility]GE[facility][id number]
== END 2018-06-13 18:19 | disposition home or self-care (01) | DRG 143 ==
LOC: JD.ED 13:15 → JD.MS 17:05
PROVIDERS: ADMIT Surgery; ATTEND Surgery
PROC: 0W9930Z Drainage of Right Pleural Cavity with Drainage Device, Percutaneous Approach (ICD-10-PCS; principal; 2018-06-09)
DX: J93.83 Other pneumothorax (principal); I10 Essential (primary) hypertension; Z87.440 Personal history of urinary (tract) infections
CPT/HCPCS: 00520; 32551; 36415; 71045; 71045-26; 71046; 71046-26; 80048; 80053; 80306; 83735; 84484; 85025; 93005; 93010; 96361; 96374; 99285-25; A9270-GY; G0480; J0360; J0690; J1170; J1885; J2250; J2270; J2704; J3480; J3490; J7050; J7120